=== PATIENT | male | born 1940 | race Caucasian/White ===

== ENCOUNTER → 2016-12-29 | Outpatient (CLI) | payer MEDICARE, BC ==
[~2016-12-29] MED LIST: DAPS100T PO; DICL75TA2 PO; LISI-410 PO; SIMV40TA3 PO; TAFL1DRO BOTH EYES
--- NOTE | 2016-12-30 04:22 | DIREP ---
PROCEDURE:CT MAXILLOFACIAL W/O CONTRAST COMPARISON:[facility] and Spiral CT, MR, MRI BRAIN W/WO, 10/27/2016, 11:58 AM. INDICATIONS:J01.01 ACUTE RECURRENT MAXILLARY SINUSITIS, R51 HEADACHE TECHNIQUE:Axial images were obtained through the facial bones with coronal reconstructions from source images. FINDINGS: GLOBES:Normal. EXTRAOCULAR MUSCLES:Normal. OPTIC NERVES:Normal. LACRIMAL GLANDS:Normal. MAXILLARY SINUSES:Near-complete opacification of the right maxillary sinus. Bilateral maxillary antral windows. Chronic mucoperiosteal thickening of the right maxillary sinus. Calcification within the right maxillary sinus mucosal thickening. Minimal mucosal thickening left maxillary sinus. ETHMOID SINUSES:Normal. SPHENOID SINUSES:Normal. FRONTAL SINUSES:Normal. OSTIOMEATAL COMPLEXES:Patent. NASAL SEPTUM:Deviation to the left measures 2 mm. OTHER:Paradoxical curvature of the left middle turbinate. CONCLUSION:Chronic right maxillary sinusitis. Dictated by: Jeremy Treviño M.D. on 12/30/2016 at 04:15 AM
== END | disposition home or self-care (01) ==
LOC: RAD 13:55
PROVIDERS: ATTEND Internal Medicine
DX: J32.0 Chronic maxillary sinusitis (principal)
CPT/HCPCS: 70486

== ENCOUNTER 2017-04-03 20:55 | Emergency (ER) | payer MEDICARE, BC ==
[~2017-04-03] VITALS: Ht 172.7 cm; Wt 84.4 kg
[2017-04-03] MEDS ORDERED: KLONOPIN PO STA (21:28)
[2017-04-03] MEDS ORDERED: KLONOPIN ONE (21:29)
--- NOTE | 2017-04-03 21:32 | ER.PDOC ---
General Chief Complaint: General Complaint Stated Complaint: HIGH BLOOD PRESSURE TRAVEL OUT OF US: No Time seen by MD: 21:31 Source: patient Exam Limitations: no limitations History of Present Illness Initial Comments Elevated blood pressure Timing/Duration: 4-6 hours Associated Symptoms: denies symptoms Allergies: Coded Allergies: No Known Allergies (Unverified , 08/02/15) Home Meds Reported Medications Simvastatin (SIMVASTATIN) 40 Mg Tablet, 40 TAB PO DAILY, #90 08/02/15 Dapsone (DAPSONE) 100 Mg Tablet, 100 TAB PO DAILY, #90 08/02/15 Diclofenac Sodium (DICLOFENAC SODIUM) 75 Mg Tablet.dr, 75 TAB PO DAILY, #180 08/02/15 Lisinopril (LISINOPRIL) 20 Mg Tablet, 20 TAB PO DAILY, #90 08/02/15 Tafluprost/Pf (ZIOPTAN 0.0015% EYE DROPS) 1 Each Droperette, 1 DROP BOTH EYES BID, #30 08/02/15 Past Medical History Medical History: hypertension Surgical History: appendectomy, cholecystectomy, knee Social History Smoking: non-smoker Alcohol Use: none Drug Use: none Review of Systems Constitutional: no symptoms reported Respiratory: no symptoms reported Cardiovascular: no symptoms reported Gastrointestinal: no symptoms reported Genitourinary: no symptoms reported All Other Systems: Reviewed and Negative Physical Exam General Appearance: Anxious Neck: Non-Tender, Full Range of Motion, Supple Respiratory: chest non-tender CVS: reg rate & rhythm, no murmur, no gallop, pulses nml Gastrointestinal: Normal Bowel Sounds, No Organomegaly, No Pulsatile Mass, Non Tender Back: Normal Inspection, No CVA Tenderness Extremities: Normal Range of Motion Neurologic/Psychiatric: caregiver assisted living II-XII NML as Tested Skin: Normal Color Results/Orders Results/Orders Administered Medications Medications (Trade) Dose Ordered Sig/Phillip Route PRN Reason Start Time Stop Time Status Last Admin Dose Admin Clonazepam (Klonopin) 1 mg STAT STAT PO 04/03/17 21:28 04/03/17 21:29 DC 04/03/17 21:32 Progress Progress Bp 155/76 Departure Time of Disposition: 21:56 Disposition: 01 HOME, SELF-CARE Impression: Primary Impression: Elevated blood pressure reading with diagnosis of hypertension Additional Impression: Anxiety Condition: Improved Referrals: PATIENCE HENLEY MD (PCP) PRIMARY CARE PROVIDER Additional Instructions: Continue home medications F/U with your PCP in 2-3 days Keep a blood pressure diary EDILIA LAW MD Apr 03, 2017 21:32
[2017-04-03 22:04] VITALS: BP 155/76
== END 2017-04-03 22:02 | disposition home or self-care (01) ==
LOC: ER 20:55
DX: I10 Essential (primary) hypertension (principal); R41.9 Unspecified symptoms and signs involving cognitive functions and awareness; Z79.899 Other long term (current) drug therapy; Z90.49 Acquired absence of other specified parts of digestive tract; Z98.890 Other specified postprocedural states
CPT/HCPCS: 99282

== ENCOUNTER 2017-07-29 01:06 | Observation (INO) | payer MEDICARE, BC ==
[2017-07-28 11:02] VITALS: BP 147/76
[2017-07-28 11:32] LABS: BASOPHIL % 0.4 % (0.0-0.2); EOSINOPHIL # 0.1 10^3/uL (0.0-0.2); EOSINOPHIL % 1.2 % (0.0-5.0); HEMOGLOBIN 14.6 g/dL (13.9-16.3); LYMPHOCYTES # 1.9 10^3/uL (1.0-4.8); LYMPHOCYTES % 18.1 % (24.0-44.0); MEAN CELL HGB 29.9 pg (26-34); MEAN CORP VOLUME 93.3 fL (78-100); MEAN PLATELET VOLUME 10.2 fL (7.8-11.0); MONOCYTES # 1.1 10^3/uL (0.3-0.8); MONOCYTES % 10.9 % (5.0-12.0); NEUTROPHIL # 7.2 10^3/uL (1.8-7.7); RED CELL DISTRIBUTION WIDTH 13.3 % (11.5-14.5); WHITE BLOOD CELL 10.4 10^3/uL (4.5-11.0)
[2017-07-28 11:57] LABS: CALCIUM 9.4 mg/dL (8.4-10.5); CARBON DIOXIDE 24.8 mmol/L (20.0-32)
--- NOTE | 2017-07-28 11:57 | PCM.EKG ---
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
--- NOTE | 2017-07-28 12:38 | DIREP ---
PROCEDURE:CHEST 2 VIEWS COMPARISON:[facility], CR, XRAY CHEST SINGLE VW, 09/07/2016, 02:23 PM. [facility], CR, XRAY CHEST SINGLE VW, 07/14/2016, 09:14 AM. INDICATIONS:PRE-OP HEART CATH, CAD FINDINGS: LUNGS/PLEURA:No significant pulmonary parenchymal abnormalities. No effusions. VASCULATURE:Normal. Unremarkable pulmonary vasculature. CARDIAC:Borderline cardiomegaly, unchanged MEDIASTINUM:Normal. No visible mass or adenopathy. BONES:Normal. No fracture or visible bony lesion. OTHER:Negative. CONCLUSION:Borderline cardiomegaly unchanged. No infiltrate, no effusion. Dictated by: Lilly Martinez MD on 07/28/2017 at 12:36 PM
[~2017-07-29] VITALS: Ht 172.7 cm; Wt 86.2 kg
[~2017-07-29 01:06] MED LIST changes: +CHRM1TAB PO; +CLON1TAB3 PO; +PROP80CA12 PO; +PROP80CA3 PO; +TEST5GEL TP; +TUMERIC PO; +UBID100C23 PO; +VALS1TAB22 PO
[2017-07-29] MEDS ORDERED: NS 1000ML 1,000 ML ONE (06:35)
[2017-07-29] MEDS ORDERED: CALAN ONE (06:35)
[2017-07-29] MEDS ORDERED: SUBLIMAZE ONE (06:35)
[2017-07-29] MEDS ORDERED: VERSED ONE (06:36)
[2017-07-29] MEDS ORDERED: XYLOCAINE ONE (06:36)
[2017-07-29] MEDS ORDERED: NITROGLYCERIN 25MG/D5W 250ML 250 ML IV ONE (06:36)
[2017-07-29] MEDS ORDERED: BENADRYL PO ONE (07:30)
[2017-07-29 10:10] VITALS: BP 154/73
[2017-07-29] MEDS ORDERED: HEPARIN ONE (13:32)
[2017-07-29] MEDS ORDERED: BRILINTA ONE (13:47)
[2017-07-29] MEDS ORDERED: TUMS ONE (13:47)
[2017-07-29] MEDS ORDERED: ASPIRIN ONE (13:48)
[2017-07-29] MEDS ORDERED: KLONOPIN PO PRN (15:00)
[2017-07-29] MEDS ORDERED: AMBIEN PO PRN (15:00)
[2017-07-29] MEDS ORDERED: NORCO 5MG PO PRN (15:00)
[2017-07-29] MEDS: NS 1000ML 1,000 ML IV SCH (15:36)
[2017-07-29 15:39] VITALS: BP 134/78
--- NOTE | 2017-07-29 15:40 | NUR ---
Manual Pressure Hardening of heart cath site noted. Manual pressure held for 10 minutes. Pt denies pain. +2 bilateral radial pulses noted. Post pressure site feels soft with no bleeding or bruising noted. Educated pt on reportable s/s related to heart cath site. Call light within reach. at bedside.
--- NOTE | 2017-07-29 18:50 | NUR ---
ASSUMED CARE. ASSESSMENT INITIATED.
[2017-07-29 19:20] VITALS: BP 139/72
--- NOTE | 2017-07-29 19:20 | NUR ---
VITAL SIGNS STABLE. ASSESSMENT COMPLETED AND WITHIN NORMAL LIMITS. SEE FLOW
--- NOTE | 2017-07-29 21:00 | NUR ---
DECLINES EYES DROPS. STATES,"I WILL WAIT UNTIL I GET HOME.'
[2017-07-29 23:00] VITALS: BP 150/68
--- NOTE | 2017-07-29 23:00 | NUR ---
VITAL SIGNS STABLE. TR BAND DEFLATED OF 2cc AND REMOVED PER AVNI PRICE RN, CHARGE NURSE. NO BLEEDING NOTED AT SITE. SOME BRUISING NOTED PROXIMAL TO DRESSING WITHOUT CHANGE FROM INITIAL ASSESSMENT @ 1920, 4x4 AND OPSITE DRESSING APPLIED PER CHARGE NURSE AVNI. WILL CONTINUE REEVALUATE THROUGHOUT THE NIGHT. INSTRUCTED TO REPORT TO NURSE FI ANY BLEEDING NOTED TO DRESSING. VOICED UNDERSTANDING OF SAME.
--- NOTE | 2017-07-29 23:30 | NUR ---
IV SITE IN LEFT AC NOT INFUSING. UNABLE TO FLUSH. DC'D CATH INTACT. IV STARTED X 1 ATTEMTP, 20GA INTO LEFT WRIST. NS INFUSING AT 100CC/HR WITHOUT DIFFICULTY. IV SITE REMAINING PATENT AND CLEAR..
[2017-07-30 04:00] VITALS: BP 148/74
[2017-07-30] MEDS: NS 1000ML 1,000 ML IV SCH (05:47)
--- NOTE | 2017-07-30 05:47 | NUR ---
NEW LITER NS HUNG AND INFUSING WITHOUT DIFFICULTY. DENIES PAIN. DENIES NEEDS.
[2017-07-30 05:57] VITALS: BP 148/74
--- NOTE | 2017-07-30 06:51 | NUR ---
REPORT RECEIVED FROM PRIOR SHIFT
--- NOTE | 2017-07-30 06:51 | NUR ---
NO CHANGE IN STATUS. CONDITION STABLE. ENDORSED TO SANTO JENNINGS
[2017-07-30 07:41] VITALS: BP 140/70
--- NOTE | 2017-07-30 08:32 | PCM.EKG ---
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
[2017-07-30] MEDS ORDERED: DIOVAN PO SCH (09:00)
[2017-07-30] MEDS ORDERED: HYDROCHLOROTHIAZIDE PO SCH (09:00)
[2017-07-30] MEDS ORDERED: PLAVIX PO SCH (09:00)
[2017-07-30] MEDS ORDERED: INDERAL PO SCH ×2 (09:00)
[2017-07-30] MEDS ORDERED: ASPIRIN EC PO SCH (09:00)
--- NOTE | 2017-07-30 10:26 | [facility] ---
DATE OF SERVICE: 07/29/2017 PROCEDURES PERFORMED: 1. Left heart catheterization via right radial artery. 2. Selective coronary angiography, left and right. 3. Angioplasty of proximal LAD with primary stenting using a drug-eluting stent. 4. Heparin infusion with ACT monitoring. COMPLICATIONS: None. BLOOD LOSS: Minimal, less than 15 to 20 mL INDICATIONS: 1. New onset active angina symptoms. 2. Multiple CAD risk factors. 3. Poorly controlled hypertension. 4. High suspicion for obstructive coronary artery disease with new-onset, typical angina symptoms. 5. Non-conclusive recent stress test in 2016. 6. The patient's preference to proceed with coronary angiography in light of his uncontrolled hypertension, active chest pain symptoms, and to seek diagnostic and therapeutic power of a cardiac coronary angiography. HISTORY OF PRESENT ILLNESS: The patient presented to the [facility] in a fasting condition, he signed the appropriate consent, the risks and benefits were explained, and all questions were answered. He was indeed symptomatic with angina at minimal activity, classified as stage III angina. DESCRIPTION OF PROCEDURE: The right wrist area was prepped and draped and sterilized and 1% lidocaine was used for local analgesia, followed by a 6-Yemeni sheath inserted in the right radial artery without difficulty. 5000 units of heparin was given for the radial access time for radial protection. A 6-Yemeni [place] catheter was utilized to engage the left and right coronary arteries. This was exchanged for a XBU-3 guiding catheter to facilitate a more adequate engagement and cannulation of the left main with the XBU-3 guiding catheter. Careful examination of the coronary angiography showed a significant proximal LAD lesion in a medium-sized vessel. The lesion was short, distinct, and significant, causing a ROSE 2 flow into the LAD. The LAD flow was significantly slower than the circumflex artery, which was a large, dominant vessel flow. At this point, heparin was given for anticoagulation and the decision was made to proceed with angioplasty. A Whisper wire was advanced across the LAD proper without difficulty, followed by the deployment of a 3.0 x 12 Xience Alpine drug-eluting stent, deployed at 14 and postdilated to 16 atmospheric pressures, achieving a 0% residual stenosis and a ROSE 3 flow without complications. There was a notable improvement with a ROSE 3 flow in the LAD after the angioplasty. The case was then concluded with removal of the wires and catheters and application of a TR band at the right radial artery access site. The patient received 180 mg of Brilinta loading dose and heparin was given with ACT monitoring for adequate anticoagulation during the procedure. The patient left the [facility] in a stable condition. Please note that the patient also reported chest pain during balloon inflation. Towards the end, while the Whisper wire was engaging the LAD, a BMW wire was advanced into the circumflex artery to improve guide stabilization. The wire was removed towards the end of the procedure. No intervention was done to the circumflex artery itself. HEMODYNAMICS: Opening pressure 142/65 mmHg, mean 96 mmHg. ANGIOGRAPHIC FINDINGS: 1. The right coronary artery is a medium sized vessel, co-dominant distribution, free of disease. The PDA and PLV were medium to small sized vessels, free of disease. 2. The left main was short, mildly calcified, free of disease. 3. The LAD showed a hazy looking, small, short 80% to 85% lesion. The vessel was medium in size. The diagonal branches were small, tortuous vessels without significant disease. The LAD continued with mild disease in the midsegment at around 40%. The apical segment showed diffuse luminal irregularity. The flow in the LAD showed a ROSE 2 flow, slower than the circumflex artery flow. 4. The circumflex artery was a large codominant vessel. The proximal part was free of disease. It terminated as a medium sized left PDA, co-dominant in distribution. The first obtuse marginal was a small rudimentary vessel. The second obtuse marginal showed a 70% to 80% lesion in the very distal portion, and a very tortuous vessel. The circumflex artery supplied a significant amount to the myocardium. INTERVENTION: The same XBU-3 guiding catheter that was used for diagnostic purposes was utilized to advance a Whisper wire across the LAD. The LAD received 3.0 x 12 Xience Alpine drug-eluting stent with primary stenting for the spot lesion in the proximal part, with excellent results and without complication. The patient reported chest pain upon stent balloon inflation. IMPRESSION: 1. Successful angioplasty of high-grade stenotic lesion in the proximal LAD causing decreased LAD flow in a medium sized vessel. 2. Large circumflex artery with residual disease in the first and second obtuse marginal distal portion; otherwise, the circumflex artery was free of disease, a large vessel and a co-dominant. 3. The RCA is a medium sized co-dominant vessel without significant disease. 4. The case was well tolerated without complications. RECOMMENDATIONS: 1. TR band protocol. 2. Dual antiplatelet therapy. 3. Optimize medical management for secondary prevention of coronary artery disease. 4. Monitor the patient for any postprocedural complication, mainly ischemia or bleeding. 5. Education on therapeutic lifestyle modifications. Cruz Castro MD DR: EUGENE/sylvia JOB# [id number]
--- NOTE | 2017-07-30 10:35 | NUR ---
DISCHARGE PLAN CM VISITED WITH PATIENT AND CONCERNING PATIENTS DISCHARGE PLAN AND NEED. PATIENT STATED HE LIVES @ HOME WITH HIS AND HE IS VERY INDEPENDENT ON ADLS. HE DOES NOT USE ANY TYPE OF DME FOR ASSISTANCE AND DENIES NEEDING FURTHER ASSISTANCE @ THIS TIME. CONTACT INFORMATION PROVIDED. CURRENT GOAL FOR PATIENT IS TO RETURN BACK HOME WITH TO ROUTINE SELF CARE UPON DISCHARGE. NO FURTHER CM OR DISCHARGE NEEDS KNOWN @ THIS TIME.
[2017-07-30] MEDS ORDERED: CLOP75TA52 PO (10:41)
--- NOTE | 2017-07-30 10:45 | PRM.DC ---
Discharge Summary Date of Discharge: Jul 30, 2017 Time of Request to Discharge: 10:42 Reason for Visit: Cardiac cath with PCI Patient History: Alzheimer's disease 32 MOTHER, , Age:94 Asthma 19 CHILD Eye problems G8 SISTER, Age:87 G8 SISTER, Age:92 FH: O2 dependent lung disease G8 SISTER, Age:92 FH: lung cancer 33 FATHER, , Age:69 FH: thyroid disease 19 CHILD 19 CHILD No Family History of: Cerebrovascular disorder Chronic obstructive pulmonary disease Congestive heart failure Diabetes insipidus Diabetes mellitus Hypertension Parkinson's disease History Present Illness: General: Alert, Oriented X3, Cooperative, No acute distress HEENT: Atraumatic, Mucous membr. moist/pink Lungs: Clear to auscultation Heart: Regular rate Extremities: No cyanosis, Normal pulses Neuro: Normal speech, Normal tone Psych/Mental Status: Mental status NL, Mood NL Scheduled Chrm/Cider/ Bt-Org Peel/Gr T (Apple Cider Vinegar Plus Tb), 2 EACH PO DAILY, ( Reported) Clopidogrel Bisulfate (Plavix), 75 MG PO DAILY Dapsone (Dapsone), 100 TAB PO DAILY, (Reported) Propranolol Hcl (Inderal La), 1 CAP PO DAILY, (Reported) Propranolol Hcl (Propranolol Hcl), 1 CAP PO DAILY, (Reported) Tafluprost/Pf (Zioptan 0.0015% Eye Drops), 1 DROP BOTH EYES BID, (Reported) Testosterone (Androgel), 1 PKT TP Q48H, (Reported) Ubidecarenone (Coq-10), 50 MG PO DAILY, (Reported) Valsartan/Hydrochlorothiazide (Diovan Hct 320-25 Mg Tablet), 1 TAB PO DAILY, ( Reported) [Tumeric], 1 TAB PO DAILY, (Reported) Scheduled PRN Clonazepam (Clonazepam), 1 TAB PO BID PRN for ANXIETY, (Reported) Discontinued Medications Diclofenac Sodium (Diclofenac Sodium), 75 TAB PO DAILY, (Reported) Discontinued Reason: No Longer Taking Lisinopril (Lisinopril), 20 TAB PO DAILY, (Reported) Discontinued Reason: No Longer Taking Simvastatin (Simvastatin), 40 TAB PO DAILY, (Reported) Discontinued Reason: No Longer Taking Sepsis Evaluation @ Discharge Course Blood Pressure Systolic: 140 Blood Pressure Diastolic: 70 Blood Pressure Mean: 93 Plan Problems: (1) CAD (coronary artery disease) Status: Chronic ICD Code: I25.10 - Atherosclerotic heart disease of shawnee coronary artery without angina pectoris SNOMED: [id number] Discharge Date: Jul 30, 2017 Discharge Disposition: Stable Plan PLAN: Successful angioplasty of high-grade stenotic lesion in the proximal LAD causing decreased LAD flow in a medium sized vessel. Dual antiplatelet therapy with Plavix and aspirin. Optimize medical management for secondary prevention of coronary artery disease. Education on therapeutic lifestyle modifications and travel precautions. Problem Qualifiers (1) CAD (coronary artery disease): Coronary Disease-Associated Artery/Lesion type: [place] artery [place] vs. transplanted heart: shawnee heart CHRIS BARKLEY NP Jul 30, 2017 10:45
== END 2017-07-30 11:02 | disposition home or self-care (01) ==
LOC: SDC 01:06 → MS 15:23
PROVIDERS: ADMIT Internal Medicine; ATTEND Internal Medicine
DX: I25.110 Atherosclerotic heart disease of native coronary artery with unstable angina pectoris (principal); E78.00 Pure hypercholesterolemia, unspecified; I10 Essential (primary) hypertension; I73.9 Peripheral vascular disease, unspecified; G47.8 Other sleep disorders; E78.1 Pure hyperglyceridemia; L40.4 Guttate psoriasis; G47.37 Central sleep apnea in conditions classified elsewhere; G43.119 Migraine with aura, intractable, without status migrainosus; Z68.27 Body mass index [BMI] 27.0-27.9, adult; Z98.890 Other specified postprocedural states
CPT/HCPCS: 36415; 71020; 80048; 85025; 85610; 93005 ×2; 93454; 99152; 99153; C1769 ×3; C1887 ×3; C1894; C9600; G0378 ×20; J1644 ×2; J2250; J3010; J3490 ×2; J7030 ×2; Q0163; Q9967; C1874

== ENCOUNTER → 2018-02-08 | Outpatient (CLI) | payer MEDICARE, BC ==
[~2018-02-08] VITALS: Ht 172.7 cm; Wt 86.6 kg
[~2018-02-08] MED LIST changes: +CLOP75TA52 PO; +GEMF600T3 PO; +LEXISCAN IV ONE
--- NOTE | 2018-02-10 09:46 | STRESS ---
DATE OF SERVICE: 02/08/2018 [facility] PHARMACOLOGIC STRESS TEST INDICATION: The patient with a history of coronary artery disease. He had PCI in the anterior descending, but review of the electrocardiogram showed some intermediate lesions in the first and second obtuse marginal branches of the circumflex. He was now having new onset exertional chest pain and was referred for pharmacologic myocardial perfusion scan. FINDINGS: The left ventricular size and function are normal. Ejection fraction is 81%. There is a reversible perfusion defect in the lateral and inferolateral left ventricle consistent with ischemia. The abnormal area matches the coronary angiogram. CONCLUSION: Abnormal pharmacologic stress test showing lateral and inferolateral ischemia. MARYELLEN RABAGO MD DR: ROSANGELA/sylvia JOB# [id number]
== END | disposition home or self-care (01) ==
LOC: RAD 10:50
DX: I25.10 Atherosclerotic heart disease of native coronary artery without angina pectoris (principal)
CPT/HCPCS: 78452; 93017; A9500; J2785

== ENCOUNTER 2018-02-17 01:11 | Observation (INO) | payer MEDICARE, BC ==
[2018-02-16 09:46] VITALS: BP 125/66
[2018-02-16 10:08] LABS: BASOPHIL % 0.6 % (0.0-0.2); EOSINOPHIL # 0.3 10^3/uL (0.0-0.2); EOSINOPHIL % 4.3 % (0.0-5.0); HEMOGLOBIN 14.3 g/dL (13.9-16.3); LYMPHOCYTES # 1.8 10^3/uL (1.0-4.8); LYMPHOCYTES % 27.1 % (24.0-44.0); MEAN CELL HGB CONCENTRATION 33.4 g/dL (33-37); MEAN CORP VOLUME 92.6 fL (78-100); MEAN PLATELET VOLUME 9.9 fL (7.8-11.0); MONOCYTES # 0.8 10^3/uL (0.3-0.8); MONOCYTES % 12.4 % (5.0-12.0); NEUTROPHIL # 3.7 10^3/uL (1.8-7.7); NEUTROPHILS % 55.5 % (41.0-85.0); RED CELL DISTRIBUTION WIDTH 13.4 % (11.5-14.5); WHITE BLOOD CELL 6.7 10^3/uL (4.5-11.0)
[2018-02-16 10:20] LABS: CALCIUM 9.7 mg/dL (8.4-10.5); CARBON DIOXIDE 25.5 mmol/L (20.0-32)
[~2018-02-17] VITALS: Ht 172.7 cm; Wt 87.5 kg
[~2018-02-17 01:11] MED LIST changes: -LEXISCAN IV ONE
[2018-02-17] MEDS ORDERED: HEPARIN ONE (06:14)
[2018-02-17] MEDS ORDERED: SUBLIMAZE ONE (06:15)
[2018-02-17] MEDS ORDERED: VERSED ONE (06:15)
[2018-02-17] MEDS ORDERED: XYLOCAINE ONE (06:15)
[2018-02-17 08:11] VITALS: BP 144/72
[2018-02-17] MEDS: NS 1000ML 1,000 ML IV SCH (08:22)
[2018-02-17] MEDS ORDERED: ANGIOMAX IV ONE ×2 (09:04→09:43)
[2018-02-17] MEDS ORDERED: NS 50ML 50 ML IV ONE (09:43)
[2018-02-17] MEDS ORDERED: ASPIRIN ONE (09:45)
[2018-02-17] MEDS ORDERED: PLAVIX ONE (09:45)
--- NOTE | 2018-02-17 11:20 | NUR ---
ARRIVAL PT ARRIVED FROM AUTOMATION SOFTWARE ENGINEER AT THIS TIME. REPORT RECEIVED FROM Martin FLORES RN AND ASSUMED CARE OF PT
--- NOTE | 2018-02-17 12:15 | NUR ---
ANGIOMAX ANGIOMAX COMPLETE AT THIS TIME
--- NOTE | 2018-02-17 13:18 | [facility] ---
DATE OF SERVICE: 02/17/2018 PROCEDURES: 1. Left heart catheterization. 2. Percutaneous transluminal coronary angioplasty and drug-eluting stent placement in the first obtuse marginal branch. CLINICAL INDICATION: The patient is a 77-year-old male who had 3 months ago had undergone angioplasty in the main body of the circumflex. He was having a heavily congested head sensation which he said after the PCI was immediately relieved. He came in the clinic saying that the symptoms were recurring. I reviewed the angiogram films and realized that there was on a higher obtuse marginal branch that had a 90% stenosis distally before it trifurcated and presumed that that might be the cause of his new onset symptoms. I recommended that we repeat the catheterization and we could do PCI on that lesion. DESCRIPTION OF PROCEDURE: After informed consent was obtained, the patient was brought to the cardiac catheterization lab in a fasting state, was prepped and draped in usual sterile fashion. A 6-Fijian sheath was placed in the right radial artery using Seldinger technique. A 6-Fijian XB 4.0 guide catheter was then engaged in the left coronary artery. The first obtuse marginal branch had a rather acute takeoff from the main branch of the circumflex and it took multiple different wires to attempt to engage it. Finally, a mailman catheter was successful. The lesion which was distal at the trifurcation point was predilated with a 2.5 x 20 mm compliant balloon. Following this, a 2.5 x 15 mm Xience drug-eluting stent was deployed across the lesion. It was deployed to a peak pressure of 16 atmospheres. After this, a more proximal stent was placed to extend the reach. A 2.5 x 28 mm Xience stent was overlapped into the existing stent and was deployed to 16 atmospheres. There was still a little spasm at the proximal end of that stent, so a third stent, 2.5 x 15 mm Xience was used to overlap to complete the procedure. After an deployment, a 2.5 x 15 mm noncompliant balloon was used to post-dilate the stents. It was along the course of the stented area, it was inflated 3 times to a peak pressure of 20 atmospheres. Post-stent angiography showed a widely patent first obtuse marginal branch with 0% residual and markedly improved distal flow. Over a wire, the guide catheter was removed. The sheath was withdrawn in the cardiac laborer wharf and a TR band was placed for hemostasis. At the initiation of the procedure, the patient who was already on Plavix was preloaded with 300 mg of Plavix and anticoagulation used was Angiomax. He tolerated the procedure well and he was transferred to room 312 in the Med/Surg floor and will be discharged tomorrow. CONCLUSION: 1. Successful PCI and drug-eluting stent placement in the distal half of the first obtuse marginal branch, reducing a 90% stenosis to a 0% residual with placement of 3 overlapping drug-eluting stents. 2. No complications. MARYELLEN RABAGO MD DR: ROSANGELA/sylvia JOB# [id number]
[2018-02-17] MEDS ORDERED: ENTRESTO 24 MG-26 MG TABLET PO ONE (16:20)
[2018-02-17] MEDS ORDERED: PROTONIX PO ONE (16:21)
[2018-02-17] MEDS ORDERED: KLOR-CON 10 PO ONE ×2 (16:21→16:22)
--- NOTE | 2018-02-17 18:30 | NUR ---
REPORT REPORT RECEIVED FROM ALLI ARNOLD ASSUMED CARE OF PT
[2018-02-17 19:57] VITALS: BP 130/68
[2018-02-18 00:30] VITALS: BP 138/69
--- NOTE | 2018-02-18 00:36 | NUR ---
HOME MEDS PT REQUESTING CLANAZEPAM 1MG PO HOME MED, ATTEMPTED TO CONTACT PHYSICIAN, NO ANSWER AT THIS TIME. LEFT MESSAGE REQUESTING CALL BACK.
[2018-02-18] MEDS: NS 1000ML 1,000 ML IV SCH (01:37)
[2018-02-18 04:25] VITALS: BP 112/58
--- NOTE | 2018-02-18 06:30 | NUR ---
Report Received report and assumed care of pt. Pt laying in bed with eyes closed. Equal rise and fall of the chest noted. Call light within reach.
--- NOTE | 2018-02-18 07:55 | NUR ---
DISCHARGE PLAN CM VISITED WITH PT AND CONCERNING PTS DISCHARGE PLAN AND NEED. PT STATED HE LIVES @ HOME WITH HIS AND HE IS VERY INDEPENDENT ON ADLS. HE DOES NOT USE ANY TYPE OF DME FOR ASSISTANCE AND DENIES NEEDING FURTHER ASSISTANCE @ THIS TIME. CONTACT INFORMATION PROVIDED. CURRENT GOAL FOR PT IS TO RETURN BACK HOME WITH TO ROUTINE SELF CARE UPON DISCHARGE. NO FURTHER CM OR DISCHARGE NEEDS KNOWN @ THIS TIME.
[2018-02-18] MEDS ORDERED: ASPI-655 PO (08:26)
--- NOTE | 2018-02-18 08:53 | NUR ---
Discharge Discharge instructions given to pt. Educated pt on continuing medications. pt able to verbalize understanding. Educated pt on importance of follow up with Dr. Ellis. Pt able to verbalize understanding. Educated pt on care of heart cath site. pt able to verbalize understanding. Educated pt on reportable s/s. Pt able to verbalize understanding. Answered all pt and pt questions. Both deny further questions or concerns. Removed IV. Bleeding noted. Pressure held for 5 minutes. Site Covered with gauze and Coban. Pt transferred off unit via wheelchair to personal vehicle. No s/s of distress noted.
--- NOTE | 2018-02-18 15:16 | DSH ---
DATE OF DISCHARGE: 02/18/2018 HOSPITAL COURSE: The patient is a 77-year-old male who came in yesterday for a planned outpatient PCI. He had a previous PCI in the distal circumflex. There was a proximal OM branch that still had a high grade lesion and he was symptomatic. He had 3 stents placed in the first OM branch, a distal 90% lesion. Prior to the procedure, he was preloaded with 300 mg of Plavix, which he had been on from his previous intervention. He did well overnight. He has no cardiac symptoms or chest pain. He had radial access catheterization and he is cleared to discharge today. His physical exam is unchanged. He still has a gauze pad on his right wrist and I have told him he can take that off as soon as he is home. No change in his medications since his preop visit. He has been on Plavix and will remain on that for a year at least. PLAN: 1. Discharge home to his own self care: 2 . Follow up with me in 2 weeks. MARYELLEN RABAGO MD DR: ROSANGELA/sylvia JOB# [id number]
== END 2018-02-18 08:59 | disposition home or self-care (01) ==
LOC: SDC 01:11 → MS 11:35
DX: I25.10 Atherosclerotic heart disease of native coronary artery without angina pectoris (principal)
CPT/HCPCS: 36415; 80048; 85025; 93454; 99152; 99153 ×5; C1769 ×2; C1887 ×3; C9600; G0378 ×21; J0583 ×2; J1644 ×3; J2250; J3010; J3480 ×2; J7030 ×3; Q9967 ×2; C1894; C1725

== ENCOUNTER 2018-02-24 13:17 | Observation (INO) | payer MEDICARE, BC ==
[~2018-02-24] VITALS: Ht 172.7 cm; Wt 86.2 kg
[2018-02-24] VITALS (7 sets, daily range): BP systolic 109–155; BP diastolic 47–99
[~2018-02-24 13:17] MED LIST changes: +ASPI-655 PO
[2018-02-24 13:31] LABS: BASOPHIL % 0.3 % (0.0-0.2); EOSINOPHIL # 0.2 10^3/uL (0.0-0.2); EOSINOPHIL % 1.3 % (0.0-5.0); HEMOGLOBIN 14.4 g/dL (13.9-16.3); LYMPHOCYTES # 1.2 10^3/uL (1.0-4.8); LYMPHOCYTES % 9.4 % (24.0-44.0); MEAN CELL HGB 30.5 pg (26-34); MEAN CELL HGB CONCENTRATION 33.3 g/dL (33-37); MEAN CORP VOLUME 91.7 fL (78-100); MEAN PLATELET VOLUME 9.9 fL (7.8-11.0); MONOCYTES # 1.1 10^3/uL (0.3-0.8); MONOCYTES % 8.9 % (5.0-12.0); NEUTROPHILS % 79.7 % (41.0-85.0); RED CELL DISTRIBUTION WIDTH 13.9 % (11.5-14.5); WHITE BLOOD CELL 12.5 10^3/uL (4.5-11.0)
--- NOTE | 2018-02-24 13:31 | ER.PDOC ---
General Chief Complaint: Chest Pain-Cardiac Nature Stated Complaint: CP Time seen by MD: 13:33 Source: patient History of Present Illness Timing/Duration: 4-6 hours Severity/Quality: mild Radiation: back Activities at Onset: activity/exertion Prior CP/Workup: Cardiac Cath Allergies: Coded Allergies: No Known Allergies (Unverified , 07/28/17) Home Meds Active Scripts Clopidogrel Bisulfate (PLAVIX) 75 Mg Tablet, 75 MG PO DAILY, #30 4 Refills Prov:CHRIS BARKLEY APRN,CARVER AND CHECKERER SPECIALS 07/30/17 Reported Medications Aspirin (ASPIRIN EC) 81 Mg Tablet.dr, 1 TAB PO DAILY, #30 TAB 3 Refills 02/18/18 Gemfibrozil (GEMFIBROZIL) 600 Mg Tablet, 600 MG PO DAILY24 for CHOLESTEROL, TABLET 02/16/18 Propranolol Hcl (PROPRANOLOL HCL) 80 Mg Cap.sa.24h, 1 CAP PO DAILY, #90 CAP 1 Refill 07/28/17 Magy/Rosanna/ Bt-Org Peel/Gr T (APPLE CIDER VINEGAR PLUS TB) 1 Each Tablet, 2 EACH PO DAILY, TABLET 07/28/17 Ubidecarenone (COQ-10) 100 Mg Capsule, 50 MG PO DAILY, CAPSULE 07/28/17 Clonazepam (CLONAZEPAM) 1 Mg Tablet, 1 TAB PO BID PRN for ANXIETY, #60 TAB 2 Refills 07/28/17 [Tumeric] No Conflict Check, 1 TAB PO DAILY 07/28/17 Valsartan/Hydrochlorothiazide (DIOVAN HCT 320-25 MG TABLET) 1 Each Tablet, 1 TAB PO DAILY, #30 TAB 5 Refills 07/28/17 Propranolol Hcl (INDERAL LA) 80 Mg Cap.sa.24h, 1 CAP PO DAILY, #90 CAP 1 Refill 07/28/17 Tafluprost/Pf (ZIOPTAN 0.0015% EYE DROPS) 1 Each Droperette, 1 DROP BOTH EYES BID, #30 08/02/15 Discontinued Reported Medications Dapsone (DAPSONE) 100 Mg Tablet, 100 TAB PO DAILY, #90 08/02/15 Past Medical History Medical History: cardiac problems, hypertension, other Surgical History: appendectomy, cholecystectomy, knee, other Social History Smoking: non-smoker Alcohol Use: none Drug Use: none Reviewed Nursing Reviewed: Vital Signs, Abn. Noted All Other Systems: Reviewed and Negative Physical Exam General Appearance: No Apparent Distress, WD/WN HEENT: PERRL/EOMI, Normal ENT Inspection, TMs Normal, Pharynx Normal Neck: Non-Tender, Full Range of Motion, Supple, Normal Inspection Respiratory: chest non-tender, lungs clear, normal breath sounds, no respiratory distress, no accessory muscle use Cardiovascular: Normal Peripheral Pulses, Regular Rate, Rhythm, No Edema, No Gallop, No JVD, No Murmur Gastrointestinal: Normal Bowel Sounds, No Organomegaly, No Pulsatile Mass, Non Tender, Soft Extremities: Normal Range of Motion, Non-Tender, Normal Inspection, No Pedal Edema, No Calf Tenderness, Normal Capillary Refill 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
--- NOTE | 2018-02-24 13:50 | PCM.EKG ---
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
--- NOTE | 2018-02-24 13:50 | DIREP ---
PROCEDURE:CHEST 1 VIEW COMPARISON:[facility], CR, XRAY CHEST 2 VWS, 07/28/2017, 11:22 AM. INDICATIONS:CP FINDINGS: LUNGS/PLEURA:No significant pulmonary parenchymal abnormalities. No effusions. VASCULATURE:Normal. Unremarkable pulmonary vasculature. CARDIAC:Normal. No cardiac silhouette abnormality or cardiomegaly. MEDIASTINUM:Normal. No visible mass or adenopathy. BONES:Normal. No fracture or visible bony lesion. OTHER:Negative. CONCLUSION:No acute disease. No significant change has occurred. Dictated by: James Zaragoza MD on 02/24/2018 at 01:47 PM
[2018-02-24 14:05] LABS: ALANINE AMINOTRANSFERASE(ML) 25 U/L (12-78); ALKALINE PHOSPHATASE 72 U/L (50-136); ASPARTATE AMINO TRANSFERASE 24 U/L (0-35); CALCIUM 9.2 mg/dL (8.4-10.5); CARBON DIOXIDE 28.8 mmol/L (20.0-32); GLUCOSE 119 mg/dL (70-110)
[2018-02-24 14:37] LABS: APPEARANCE,URINE CLEAR (CLEAR); BILIRUBIN,URINE NEGATIVE (NEGATIVE); UA COLOR YELLOW (YELLOW); UROBILINOGEN,URINE NORMAL (NEGATIVE)
--- NOTE | 2018-02-24 15:00 | NUR ---
FEBRILE: EDP IN ROOM WITH PATIENT AND NOTED HIM TO BE SHIVERING, REQUESTED NURSE TO TAKE TEMP. TEMP WAS @ 102. NEW ORDERS GIVEN.
[2018-02-24] MEDS ORDERED: TYLENOL PO ONE (15:03)
[2018-02-24] MEDS ORDERED: TYLENOL PO STA (15:06)
[2018-02-24] MEDS ORDERED: ROCEPHIN ONE (15:20)
[2018-02-24] MEDS ORDERED: NS 100ML 100 ML IV ONE (15:20)
[2018-02-24] MEDS ORDERED: ZOFRAN ONE (15:22)
[2018-02-24] MEDS ORDERED: ROCEPHIN 1,000 MG in NS 100ML 100 ML IV STA (15:29)
[2018-02-24] MEDS ORDERED: ZOFRAN IV STA (15:30)
[2018-02-24] MEDS ORDERED: DUONEB 0.5 MG-3 MG/3 ML SOLN IH STA (15:39)
[2018-02-24] MEDS ORDERED: DECADRON IH STA (15:39)
--- NOTE | 2018-02-24 15:44 | NUR ---
DR. CARROLL: EDP CALLED DR. CARROLL WITH NO ANSWER, LEFT MESSAGE TO RETURN CALL CONCERNING ADMISSION OF THIS PATIENT.
--- NOTE | 2018-02-24 15:46 | NUR ---
RT: RT HERE TO COMPLETE NEB TREATMENT ORDERED.
--- NOTE | 2018-02-24 15:58 | NUR ---
DR GLEN GARCIA ON PHONE WITH DR CARROLL
[2018-02-24] MEDS ORDERED: AMBIEN PO PRN (16:30)
--- NOTE | 2018-02-24 16:34 | NUR ---
RECONCILE OF HOME MEDS: RECONCILIATION OF HOMES MEDS COMPLETED. PATIENT STATES THAT THE ONLY MED NOT ON HIS LIST IS DAPSONE (UNSURE OF MG) EVERY [address] RABAGO SAID TO DISCONTINUE THE MED, BUT PATIENT CONTNUES UNTIL HE CAN SPEAK WITH HIM NEXT WEEK AND TELL HIM WHY HE IS ON THIS MED.
[2018-02-24] MEDS ORDERED: LEVAQUIN 100 ML IV ONE (17:00)
[2018-02-24] MEDS ORDERED: KLONOPIN PO PRN (19:00)
[2018-02-24] MEDS ORDERED: LOPID PO SCH (19:00)
[2018-02-24] MEDS: DUONEB 0.5 MG-3 MG/3 ML SOLN IH SCH (21:28)
[2018-02-25 00:05] VITALS: BP 109/62
[2018-02-25] MEDS ORDERED: ZOFRAN IV PRN (01:00)
[2018-02-25] MEDS ORDERED: TYLENOL PO PRN (01:00)
[2018-02-25] MEDS: DUONEB 0.5 MG-3 MG/3 ML SOLN IH SCH (03:00)
[2018-02-25 04:55] VITALS: BP 105/52
--- NOTE | 2018-02-25 06:45 | NUR ---
REPORT REPORT RECEIVED FROM LAUNDRY HELPER.
[2018-02-25] MEDS ORDERED: AZIT250T PO (07:52)
--- NOTE | 2018-02-25 07:58 | PRM.DC ---
Discharge Summary Date of Discharge: February 25, 2018 Reason for Visit: Chest discomfort Patient History: Alzheimer's disease 32 MOTHER, , Age:94 Asthma 19 CHILD Eye problems G8 SISTER, Age:87 G8 SISTER, Age:92 FH: O2 dependent lung disease G8 SISTER, Age:92 FH: lung cancer 33 FATHER, , Age:69 FH: thyroid disease 19 CHILD 19 CHILD No Family History of: Cerebrovascular disorder Chronic obstructive pulmonary disease Congestive heart failure Diabetes insipidus Diabetes mellitus Hypertension Parkinson's disease History Present Illness: (1) Bronchitis Status: Acute ICD Code: J40 - Bronchitis, not specified as acute or chronic SNOMED: 71723762 Assessment & Plan: Take Z-pack as prescribed (2) CAD (coronary artery disease) Status: Chronic ICD Code: I25.10 - Atherosclerotic heart disease of [place] coronary artery without angina pectoris SNOMED: 42255906 General: Alert, Oriented X3, Cooperative, No acute distress HEENT: PERRLA, EOMI Neck: Supple, No JVD Lungs: Clear to auscultation, Normal air movement Heart: Regular rate, Normal S1, Normal S2 Abdomen: Normal bowel sounds, Soft, No tenderness Extremities: No clubbing, No cyanosis, No edema Skin: No significant lesion Neuro: Normal speech, Strength at 5/5 X4 ext, Cranial nerves 3-12 NL Psych/Mental Status: Mood NL Results(Labs/Rad) Laboratory Tests Test 02/24/18 13:27 02/24/18 14:25 02/25/18 00:42 White Blood Count 12.5 10^3/uL Red Blood Count 4.72 10^6/uL Hemoglobin 14.4 g/dL Hematocrit 43.3 % Mean Corpuscular Volume 91.7 fL Mean Corpuscular Hemoglobin 30.5 pg Mean Corpuscular Hemoglobin Concent 33.3 g/dL Red Cell Distribution Width 13.9 % Platelet Count 238 10^3/uL Mean Platelet Volume 9.9 fL Neutrophils (%) (Auto) 79.7 % Lymphocytes (%) (Auto) 9.4 % Monocytes (%) (Auto) 8.9 % Neutrophils # (Auto) 10.0 10^3/uL Lymphocytes # (Auto) 1.2 10^3/uL Monocytes # (Auto) 1.1 10^3/uL Absolute Immature Granulocyte (auto 0.05 10^3 u/L Eosinophils % 1.3 % Basophils % 0.3 % Basophils # 0.0 10^3/uL Eosinophil Count 0.2 10^3/uL Prothrombin Time 9.5 SEC Prothrombin Time INR (Non-Therap) 1.0 Activated Partial Thromboplast Time 25.9 SEC D-Dimer 0.86 mg/L Sodium Level 141 mmol/L Potassium Level 4.0 mmol/L Chloride Level 103.0 mmol/L Carbon Dioxide Level 28.8 mmol/L Anion Gap 13.2 Blood Urea Nitrogen 25 mg/dL Creatinine 1.42 mg/dL Estimated GFR () 58.5 BUN/Creatinine Ratio 17.0 Glucose Level 119 mg/dL Calcium Level 9.2 mg/dL Total Bilirubin 0.6 mg/dL Aspartate Amino Transf (AST/SGOT) 24 U/L Alanine Aminotransferase (ALT/SGPT) 25 U/L Alkaline Phosphatase 72 U/L Total Creatine Kinase 110 U/L 69 U/L Creatine Kinase MB 1.8 ng/mL 1.4 ng/mL Troponin I < 0.02 ng/mL < 0.02 ng/mL Pro-B-Type Natriuretic Peptide 139 pg/mL Total Protein 7.2 g/dL Albumin 4.2 g/dL Globulin 3.0 Percent Immature Gran (Cell Imm) 0.40 % Helicobacter pylori Screen NEGATIVE Urine Collection Type VOID Urine Color YELLOW Urine Appearance CLEAR Urine Bilirubin NEGATIVE MG/DL Urine Ketones NEGATIVE Urine Specific [place] 1.010 Urine pH 6.5 Urine Protein NEGATIVE Urine Urobilinogen NORMAL Urine Nitrate NEGATIVE Urine Leukocyte Esterase NEGATIVE Urine Blood NEGATIVE Urine Glucose NORMAL Scheduled Azithromycin (Zithromax), 250 MG PO DAILY24 Chrm/Rosanna/ Bt-Org Peel/Gr T (Apple Cider Vinegar Plus Tb), 2 EACH PO DAILY, ( Reported) Clopidogrel Bisulfate (Plavix), 75 MG PO DAILY Gemfibrozil (Gemfibrozil), 600 MG PO DAILY24, (Reported) Propranolol Hcl (Inderal La), 1 CAP PO DAILY, (Reported) Tafluprost/Pf (Zioptan 0.0015% Eye Drops), 1 DROP BOTH EYES BID, (Reported) Ubidecarenone (Coq-10), 50 MG PO DAILY, (Reported) Valsartan/Hydrochlorothiazide (Diovan Hct 320-25 Mg Tablet), 1 TAB PO DAILY, ( Reported) [Tumeric], 1 TAB PO DAILY, (Reported) Scheduled PRN Clonazepam (Clonazepam), 1 TAB PO BID PRN for ANXIETY, (Reported) Discontinued Medications Aspirin (Aspirin Ec), 1 TAB PO DAILY, (Reported) Discontinued Reason: Discontinue Dapsone (Dapsone), 100 TAB PO DAILY, (Reported) Discontinued Reason: Discontinue Propranolol Hcl (Propranolol Hcl), 1 CAP PO DAILY, (Reported) Discontinued Reason: Cancel Sepsis Evaluation @ Discharge 02/25/18 04:55 Course Sepsis Screening Results: Posi: NEGATIVE Sepsis Qualifier/Stage: NO DEFINITE RISK Vitals & review Data Vital Sign - Last 24 Hours 02/24/18 02/24/18 02/24/18 02/24/18 13:21 13:21 13:26 14:35 Temp 98.7 98.7 98.7 98.8 Pulse 77 81 81 79 Resp 20 20 20 18 B/P (MAP) 150/99 (116) 151/81 (104) Pulse Ox 95 95 O2 Delivery Room Air Room Air Room Air 02/24/18 02/24/18 02/24/18 02/24/18 15:00 15:57 16:04 16:04 Temp 102.0 Pulse 80 77 79 Resp 20 20 18 18 B/P (MAP) 155/70 (98) Pulse Ox 94 94 O2 Delivery Room Air 02/24/18 02/24/18 02/24/18 02/24/18 16:14 16:35 17:14 17:29 Temp 102.0 101.5 Pulse 80 81 76 Resp 18 16 B/P (MAP) 137/61 (86) 139/63 (88) 122/56 (78) Pulse Ox 94 91 O2 Delivery Room Air Room Air Room Air 02/24/18 02/24/18 02/24/18 02/24/18 20:15 20:35 21:30 21:46 Temp 98.9 Pulse 67 64 68 Resp 18 16 16 B/P (MAP) 109/47 (67) Pulse Ox 93 93 95 O2 Delivery Room Air Room Air 02/25/18 02/25/18 02/25/18 00:05 03:25 04:55 Temp 98.7 98.8 Pulse 64 64 61 Resp 18 18 18 B/P (MAP) 109/62 (78) 105/52 (69) Pulse Ox 95 95 94 O2 Delivery Nasal Canula Nasal [place] O2 Flow Rate 2.00 2.00 Intake and Output 02/24/18 02/24/18 02/25/18 15:00 23:00 07:00 Intake Total 300 ml 400 ml Output Total 950 ml Balance 300 ml -550 ml Laboratory Tests Test 02/24/18 13:27 02/24/18 14:25 02/25/18 00:42 White Blood Count 12.5 10^3/uL Red Blood Count 4.72 10^6/uL Hemoglobin 14.4 g/dL Hematocrit 43.3 % Mean Corpuscular Volume 91.7 fL Mean Corpuscular Hemoglobin 30.5 pg Mean Corpuscular Hemoglobin Concent 33.3 g/dL Red Cell Distribution Width 13.9 % Platelet Count 238 10^3/uL Mean Platelet Volume 9.9 fL Neutrophils (%) (Auto) 79.7 % Lymphocytes (%) (Auto) 9.4 % Monocytes (%) (Auto) 8.9 % Neutrophils # (Auto) 10.0 10^3/uL Lymphocytes # (Auto) 1.2 10^3/uL Monocytes # (Auto) 1.1 10^3/uL Absolute Immature Granulocyte (auto 0.05 10^3 u/L Eosinophils % 1.3 % Basophils % 0.3 % Basophils # 0.0 10^3/uL Eosinophil Count 0.2 10^3/uL Prothrombin Time 9.5 SEC Prothrombin Time INR (Non-Therap) 1.0 Activated Partial Thromboplast Time 25.9 SEC D-Dimer 0.86 mg/L Sodium Level 141 mmol/L Potassium Level 4.0 mmol/L Chloride Level 103.0 mmol/L Carbon Dioxide Level 28.8 mmol/L Anion Gap 13.2 Blood Urea Nitrogen 25 mg/dL Creatinine 1.42 mg/dL Estimated GFR () 58.5 BUN/Creatinine Ratio 17.0 Glucose Level 119 mg/dL Calcium Level 9.2 mg/dL Total Bilirubin 0.6 mg/dL Aspartate Amino Transf (AST/SGOT) 24 U/L Alanine Aminotransferase (ALT/SGPT) 25 U/L Alkaline Phosphatase 72 U/L Total Creatine Kinase 110 U/L 69 U/L Creatine Kinase MB 1.8 ng/mL 1.4 ng/mL Troponin I < 0.02 ng/mL < 0.02 ng/mL Pro-B-Type Natriuretic Peptide 139 pg/mL Total Protein 7.2 g/dL Albumin 4.2 g/dL Globulin 3.0 Percent Immature Gran (Cell Imm) 0.40 % Helicobacter pylori Screen NEGATIVE Urine Collection Type VOID Urine Color YELLOW Urine Appearance CLEAR Urine Bilirubin NEGATIVE MG/DL Urine Ketones NEGATIVE Urine Specific [place] 1.010 Urine pH 6.5 Urine Protein NEGATIVE Urine Urobilinogen NORMAL Urine Nitrate NEGATIVE Urine Leukocyte Esterase NEGATIVE Urine Blood NEGATIVE Urine Glucose NORMAL Current Medications Medications (Trade) Dose Ordered Sig/Phillip PRN Reason Start Time Stop Time Status Last Admin Acetaminophen (Tylenol) 1,000 mg Q6H PRN PAIN MILD 02/25/18 01:00 03/27/18 00:59 UNV Albuterol/ Ipratropium (Duoneb 0.5 Mg-3 Mg/3 ml Soln) 3 ml RTQ6 02/24/18 21:00 03/26/18 20:59 02/24/18 21:28 Clonazepam (Klonopin) 1 mg BID PRN ANXIETY 02/24/18 19:00 03/26/18 18:59 Clopidogrel Bisulfate (Plavix) 75 mg DAILY 02/25/18 09:00 03/27/18 08:59 Gemfibrozil (Lopid) 600 mg DAILY24 02/24/18 19:00 03/26/18 18:59 Ondansetron HCl (Zofran) 4 mg Q4H PRN NAUSEA / VOMITING 02/25/18 01:00 03/27/18 00:59 UNV Propranolol HCl (Inderal) 80 mg DAILY 02/25/18 09:00 03/27/18 08:59 Zolpidem Tartrate (Ambien) 5 mg HS PRN INSOMNIA 02/24/18 16:30 03/26/18 16:29 Plan Discharge Date: February 25, 2018 Dicharge DX: 1. Acute bronchitis, 2. CAD Discharge Disposition: Stable Plan Medications per discharge Diet and activity as tolerated Follow up with PCP 1-2 weeks Discharge plans discussed with patient, he is his own decision maker and does understand and concur with plans Time spent 25 minutes Problem Qualifiers (1) CAD (coronary artery disease): Coronary Disease-Associated Artery/Lesion type: [place] artery [place] vs. transplanted heart: [place] heart DAVID CARROLL MD February 25, 2018 07:58
[2018-02-25] MEDS ORDERED: ZITHROMAX PO ONE (08:30)
[2018-02-25 08:47] VITALS: BP 122/55
[2018-02-25] MEDS ORDERED: INDERAL PO SCH (09:00)
[2018-02-25] MEDS ORDERED: PLAVIX PO SCH (09:00)
[2018-02-25 09:10] VITALS: BP 122/55
--- NOTE | 2018-02-25 09:15 | NUR ---
DISCHARGE PATIENT DISCHARGED FROM FACILITY. PATIENT INSTRUCTED ON HOME AND NEW MEDICATIONS AND FOLLOW UP APPT WITH PCP IN 5-7 DAYS. PATIENT VOICES UNDERSTANDING AND DENIES QUESTIONS AT THIS TIME. PATIENT LEFT FLOOR VIA WHEELCHAIR ACCOMPANIED BY STAFF TO PRIVATE VEHICLE DRIVEN BY SPOUSE.
--- NOTE | 2018-03-03 12:36 | HPH ---
ADMIT DATE: 02/25/2018 ADMISSION HISTORY AND PHYSICAL AND DISCHARGE SUMMARY CHIEF COMPLAINT: Initially chest pain. HISTORY OF PRESENT ILLNESS: The patient is a 77-year-old man with a past medical history significant for hypertension, coronary artery disease, dyslipidemia. He presented to the ER initially with complaints of chest pain. Symptoms were onset 46 hours, mild in nature, worse with exertion, radiated to the back. Workup in the ER was negative for any acute coronary event. He had mildly elevated white count and some elevated creatinine. For ER documentation, it was thought that he had pneumonia, but chest x-ray was negative for acute process. He did have a cough that is mildly productive. No other acute changes. PAST MEDICAL HISTORY: Includes hypertension, hyperlipidemia, osteoarthritis, CHF, chronic diastolic dysfunction and mild pulmonary hypertension. PAST SURGICAL HISTORY: He has had a heart catheterization 1 week ago. He had angioplasty and stent placement at that time. ALLERGIES: NO KNOWN DRUG ALLERGIES. HOME MEDICATIONS: List includes clonazepam 1 mg twice a day as needed, gemfibrozil 600 mg daily, Plavix 75 mg daily, propranolol 80 mg daily, takes eyedrops twice a day, Coenzyme Q10 50 mg daily and valsartan/hydrochlorothiazide 320/25 mg daily. SOCIAL HISTORY: No current alcohol, tobacco or illicit drug use history. Lives at home. FAMILY HISTORY: Negative for early coronary artery disease or diabetes. REVIEW OF SYSTEMS: CARDIAC: Denies chest pain. At time of exam, he presented to ER with complaints of chest discomfort. No shortness of breath and dyspnea on exertion. PULMONARY: Positive for productive cough. No pleuritic chest pain. GASTROINTESTINAL: No nausea, vomiting, diarrhea or constipation. All else negative in 10 point review of system except as in HPI. PHYSICAL EXAMINATION: VITAL SIGNS: Upon arrival to the ER: Height 172.7 cm, weight 86.2 kilograms. Temperature 98.7, pulse 81, respiratory rate is 20, blood pressure 150/99, O2 saturation 95% on room air. GENERAL: He is alert, in no acute distress at time of exam. HEENT: Pupils equal, round, reactive to light. Sclerae are anicteric. Oropharynx is clear. Mucous membranes are moist. NECK: Supple, no lymphadenopathy. CARDIOVASCULAR: At time of exam was regular rate and rhythm. LUNGS: Clear bilaterally. He has some mild upper respiratory congestion. ABDOMEN: Soft. Bowel sounds are present, nontender to palpation. EXTREMITIES: No cyanosis, clubbing or edema. NEUROLOGIC: Grossly nonfocal. INITIAL LABORATORY DATA: CBC: White count is 12.5, hemoglobin 14.4 and platelets 238. Differential: 80% neutrophils, 9% lymphocytes and 9% monocytes. Sodium 141, potassium 4.0, chloride 103, CO2 is 29, BUN 25, creatinine 1.42, glucose is 119, calcium is 9.2, total bilirubin 0.6, AST 24, ALT 25, alkaline phosphatase 72, total CK is 110, repeat is 69, CK-MB is 1.8, repeat is 1.4, troponin I is less than 0.02 x 2. ProBNP 139, total protein 7.2, albumin 4.2. UA, pH is 6.5, specific gravity is 1.010, all else is negative. H. pylori is negative. IMAGING STUDIES: Chest x-ray is negative acute process. ASSESSMENT AND PLAN: The patient is a 77-year-old with acute bronchitis with history of coronary artery disease with a stent placed 1 week ago with no evidence of acute cardiac ischemia. Also, with some very mild renal failure. His baseline is 1.3, creatinine 1.42. 1. We will continue his cardiovascular medications. 2. Nebulizer treatments scheduled and as needed. 3. IV antibiotics. 4. He improved overnight, is feeling well, we will discharge home on Z-DEON for the bronchitis. DISCHARGE MEDICATIONS: Resume his previous medications plus a Z-DEON as prescribed. DISCHARGE ACTIVITY: As tolerated. DISCHARGE FOLLOWUP: With primary care physician and Cardiology as scheduled. Discharge plans were discussed with the patient. He is his own decision maker. He does understand and concur with plans. Time spent on discharge and H and P on 02/25/2018 is 45 minutes. Taz Manrique MD DR: STU/sylvia JOB# [id number]
== END 2018-02-25 09:10 | disposition home or self-care (01) ==
LOC: ER 13:17 → MS 16:01 → INTOOBSV 16:01
PROVIDERS: ADMIT Internal Medicine; ATTEND Internal Medicine
DX: J20.9 Acute bronchitis, unspecified (principal); I25.10 Atherosclerotic heart disease of native coronary artery without angina pectoris; I10 Essential (primary) hypertension; J18.9 Pneumonia, unspecified organism
CPT/HCPCS: 36415 ×2; 71045; 80053; 81002; 82550 ×2; 82553 ×2; 83880; 84484 ×2; 85025; 85379; 85610; 85730; 86677; 87040 ×2; 87077; 87186; 93005; 94640 ×2; 96365; 96375; 99285; G0378 ×17; J0696 ×2; J1100; J1956; J2405; J7050 ×2; J7620 ×2; 96374; Q0144

== ENCOUNTER → 2018-03-22 | Outpatient (CLI) | payer MEDICARE, BC ==
[~2018-03-22] MED LIST changes: +AZIT250T PO
--- NOTE | 2018-03-22 10:16 | DIREP ---
PROCEDURE:XR SPINE CERVICAL 2 OR 3 VIEWS COMPARISON:None. INDICATIONS:M54.2 CERVICALGIA FINDINGS: ALIGNMENT:There is straightening of normal cervical curvature. There is trace anterolisthesis of C4 on C5 measuring 2 mm. VERTEBRAE:Normal. DISK SPACES:Severe disc height loss is seen at C3-C4 and C5-C6 and C6-C7. Anterior osteophytes are noted, worst at C5-C6. CERVICAL RIBS:None. OTHER:Dental hardware is noted. CONCLUSION:Degenerative changes as above. Anterolisthesis of C4 on C5 measuring 2 mm. Dictated by: Bola Dimas MD on 03/22/2018 at 10:12 AM
== END | disposition home or self-care (01) ==
LOC: RAD 08:42
PROVIDERS: ATTEND Nurse Practitioner
DX: M47.892 Other spondylosis, cervical region (principal)
CPT/HCPCS: 72040

== ENCOUNTER 2019-02-09 20:47 | Emergency (ER) | payer MEDICARE, BC ==
[~2019-02-09] VITALS: Ht 172.7 cm; Wt 83.9 kg
[~2019-02-09 20:47] MED LIST changes: +CLON1TAB11 PO; -CLON1TAB3 PO; -GEMF600T3 PO; +GEMF600T8 PO
[2019-02-09 21:09] VITALS: BP 123/64
--- NOTE | 2019-02-09 21:38 | ER.PDOC ---
General Chief Complaint: Requesting Medical Care Stated Complaint: WEAKNESS,FEVER TRAVEL OUT OF US: No Time seen by MD: 21:37 Source: patient Exam Limitations: no limitations History of Present Illness Initial Comments Weakness and fever today. Severity: moderate Associated Symptoms: weakness Allergies: Coded Allergies: No Known Allergies (Unverified , 07/28/17) Home Meds Active Scripts Azithromycin (ZITHROMAX) 250 Mg Tablet, 250 MG PO DAILY24 for 4 Days, #4 TAB Prov:DAVID CARROLL MD 02/25/18 Clopidogrel Bisulfate (PLAVIX) 75 Mg Tablet, 75 MG PO DAILY, #30 4 Refills Prov:CHRIS BARKLEY ANP [employer] 07/30/17 Reported Medications Gemfibrozil (GEMFIBROZIL) 600 Mg Tablet, 600 MG PO DAILY24 for CHOLESTEROL, TABLET 02/16/18 Chrm/Rosanna/ Bt-Org Peel/Gr T (APPLE CIDER VINEGAR PLUS TB) 1 Each Tablet, 2 EACH PO DAILY, TABLET 07/28/17 Ubidecarenone (COQ-10) 100 Mg Capsule, 50 MG PO DAILY, CAPSULE 07/28/17 Clonazepam (CLONAZEPAM) 1 Mg Tablet, 1 TAB PO BID PRN for ANXIETY, #60 TAB 2 Refills 07/28/17 [Tumeric] No Conflict Check, 1 TAB PO DAILY 07/28/17 Valsartan/Hydrochlorothiazide (DIOVAN HCT 320-25 MG TABLET) 1 Each Tablet, 1 TAB PO DAILY, #30 TAB 5 Refills 07/28/17 Propranolol Hcl (INDERAL LA) 80 Mg Cap.sa.24h, 1 CAP PO DAILY, #90 CAP 1 Refill 07/28/17 Tafluprost/Pf (ZIOPTAN 0.0015% EYE DROPS) 1 Each Droperette, 1 DROP BOTH EYES BID, #30 08/02/15 Past Medical History Surgical History: appendectomy, cholecystectomy, stent, other Social History Drug Use: none Review of Systems Constitutional: see HPI EENTM: no symptoms reported Respiratory: no symptoms reported Cardiovascular: no symptoms reported Gastrointestinal: no symptoms reported All Other Systems: Reviewed and Negative Physical Exam General Appearance: No Apparent Distress, WD/WN Neck: Non-Tender, Full Range of Motion, Supple, Normal Inspection Respiratory: chest non-tender, lungs clear, normal breath sounds, no respiratory distress CVS: reg rate & rhythm, no murmur, no gallop, pulses nml, nml capillary refill Gastrointestinal: Normal Bowel Sounds, No Organomegaly, No Pulsatile Mass, Non Tender Back: Normal Inspection Extremities: Normal Range of Motion 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 Skin: Normal Color Results/Orders Results/Orders Orders - EDILIA LAW MD Cbc With Auto Diff (02/09/19 21:34) Comprehensive Metabolic Panel (02/09/19 21:34) Creatine Kinase (02/09/19 21:34) Probnp B-Type Networking Specialist (02/09/19 21:34) Troponin I (02/09/19 21:34) Blood Culture (02/09/19 21:34) Ekg-Routine (02/09/19 21:34) Xr Chest 1v (02/09/19 21:34) Urinalysis (02/09/19 21:34) Strep Screen (02/09/19 21:50) Influenza A&B (02/09/19 21:50) Laboratory Tests Test 02/09/19 21:34 02/09/19 21:42 02/09/19 21:59 Urine Collection Type CCMS Urine Color YELLOW (YELLOW) Urine Appearance CLEAR (CLEAR) Urine Bilirubin NEGATIVE MG/DL (NEGATIVE) Urine Ketones NEGATIVE (NEGATIVE) Urine Specific [place] 1.020 (1.005-1.035) Urine pH 5 (5.0-6.0) Urine Protein NEGATIVE (NEGATIVE) Urine Urobilinogen NORMAL (NEGATIVE) Urine Nitrate NEGATIVE (NEGATAIVE) Urine Leukocyte Esterase NEGATIVE (NEGATIVE) Urine Blood NEGATIVE (NEGATIVE) Urine Glucose NORMAL (NEGATIVE) White Blood Count 10.9 10^3/uL (4.5-11.0) Red Blood Count 4.23 10^6/uL (4.50-5.90) L Hemoglobin 13.2 g/dL (13.9-16.3) L Hematocrit 37.8 % (37.0-53.0) Mean Corpuscular Volume 89.4 fL (78-100) Mean Corpuscular Hemoglobin 31.2 pg (26-34) Mean Corpuscular Hemoglobin Concent 34.9 g/dL (33-37) Red Cell Distribution Width 13.1 % (11.5-14.5) Platelet Count 198 10^3/uL (150-400) Mean Platelet Volume 10.1 fL (7.8-11.0) Neutrophils (%) (Auto) 73.5 % (41.0-85.0) Lymphocytes (%) (Auto) 13.5 % (24.0-44.0) L Monocytes (%) (Auto) 12.0 % (5.0-12.0) Neutrophils # (Auto) 8.0 10^3/uL (1.8-7.7) H Lymphocytes # (Auto) 1.5 10^3/uL (1.0-4.8) Monocytes # (Auto) 1.3 10^3/uL (0.3-0.8) H Absolute Immature Granulocyte (auto 0.02 10^3 u/L (0-2) Eosinophils % 0.5 % (0.0-5.0) Basophils % 0.3 % (0.0-0.2) H Basophils # 0.0 10^3/uL (0.0-0.1) Eosinophil Count 0.1 10^3/uL (0.0-0.2) Sodium Level 142 mmol/L (132-145) Potassium Level 3.4 mmol/L (3.6-5.2) L Chloride Level 105.0 mmol/L (96-109) Carbon Dioxide Level 19.9 mmol/L (20.0-32) L Anion Gap 20.5 Blood Urea Nitrogen 23 mg/dL (7-18) H Creatinine 1.53 mg/dL (0.59-1.40) H Estimated GFR () 53.5 (>/=60) BUN/Creatinine Ratio 15.0 Glucose Level 128 mg/dL (70-110) H Calcium Level 9.2 mg/dL (8.4-10.5) Total Bilirubin 0.8 mg/dL (0.2-1.0) Aspartate Amino Transferase (AST) 19 U/L (0-35) Alanine Aminotransferase (ALT) 20 U/L (12-78) Alkaline Phosphatase 72 U/L (50-136) Total Creatine Kinase 68 U/L (39-308) Troponin I < 0.02 ng/mL (0.00-0.05) Pro-B-Type Natriuretic Peptide 664 pg/mL (0-450) H Total Protein 6.8 g/dL (6.4-8.2) Albumin 3.8 g/dL (3.4-5.0) Globulin 3.0 Percent Immature Gran (Cell Imm) 0.20 % (0.00-0.50) Influenza Type A Antigen NEGATIVE (NEG) Influenza B Immunofluorescence NEGATIVE (NEG) Group A Streptococcus Screen NEGATIVE (NEGATIVE) Progress Progress Patient refused IVF, will drink at home. EKG/XRAY/CT/US EKG Comments: Sinus bradycardia XRAY: chest (No active disease) Course Sepsis Screening Results: Posi: NEGATIVE Sepsis Qualifier/Stage: NO DEFINITE RISK Duration or Total Time Spent w: 2 HRS Vitals & review Data Laboratory Tests Test 02/09/19 21:34 02/09/19 21:42 02/09/19 21:59 Urine Collection Type CCMS Urine Color YELLOW Urine Appearance CLEAR Urine Bilirubin NEGATIVE MG/DL Urine Ketones NEGATIVE Urine Specific [place] 1.020 Urine pH 5 Urine Protein NEGATIVE Urine Urobilinogen NORMAL Urine Nitrate NEGATIVE Urine Leukocyte Esterase NEGATIVE Urine Blood NEGATIVE Urine Glucose NORMAL White Blood Count 10.9 10^3/uL Red Blood Count 4.23 10^6/uL Hemoglobin 13.2 g/dL Hematocrit 37.8 % Mean Corpuscular Volume 89.4 fL Mean Corpuscular Hemoglobin 31.2 pg Mean Corpuscular Hemoglobin Concent 34.9 g/dL Red Cell Distribution Width 13.1 % Platelet Count 198 10^3/uL Mean Platelet Volume 10.1 fL Neutrophils (%) (Auto) 73.5 % Lymphocytes (%) (Auto) 13.5 % Monocytes (%) (Auto) 12.0 % Neutrophils # (Auto) 8.0 10^3/uL Lymphocytes # (Auto) 1.5 10^3/uL Monocytes # (Auto) 1.3 10^3/uL Absolute Immature Granulocyte (auto 0.02 10^3 u/L Eosinophils % 0.5 % Basophils % 0.3 % Basophils # 0.0 10^3/uL Eosinophil Count 0.1 10^3/uL Sodium Level 142 mmol/L Potassium Level 3.4 mmol/L Chloride Level 105.0 mmol/L Carbon Dioxide Level 19.9 mmol/L Anion Gap 20.5 Blood Urea Nitrogen 23 mg/dL Creatinine 1.53 mg/dL Estimated GFR () 53.5 BUN/Creatinine Ratio 15.0 Glucose Level 128 mg/dL Calcium Level 9.2 mg/dL Total Bilirubin 0.8 mg/dL Aspartate Amino Transf (AST/SGOT) 19 U/L Alanine Aminotransferase (ALT/SGPT) 20 U/L Alkaline Phosphatase 72 U/L Total Creatine Kinase 68 U/L Troponin I < 0.02 ng/mL Pro-B-Type Natriuretic Peptide 664 pg/mL Total Protein 6.8 g/dL Albumin 3.8 g/dL Globulin 3.0 Percent Immature Gran (Cell Imm) 0.20 % Influenza Type A Antigen NEGATIVE Influenza B Immunofluorescence NEGATIVE Group A Streptococcus Screen NEGATIVE LEVEL 1 SEPSIS INFECTION CRITE: ABX Therapy LEVEL 2-SIRS (LIST ALL THAT AP: [id number] Cardiovascular Evidence: Not Assessed or None Hematologic Evidence: None/Not assessed Hepatic Evidence: None/Not assessed Metabolic Evidence: None/Not assessed Neurological Evidence: None/Not assessed Respiratory Evidence: None/Not assessed Renal Evidence: None/Not assessed Departure Time of Disposition: 23:25 Disposition: 01 HOME, SELF-CARE Impression: Primary Impression: Viremia, unspecified Additional Impression: Weakness Condition: Stable Referrals: PATIENCE HENLEY MD (PCP) PRIMARY CARE PROVIDER Additional Instructions: Push fluids F/U with PCP in 2-3 days Duration or Time Spent with Pa: 60 mins Problem Qualifiers EDILIA LAW MD February 09, 2019 21:38
[2019-02-09 21:41] LABS: BILIRUBIN,URINE NEGATIVE (NEGATIVE); UROBILINOGEN,URINE NORMAL (NEGATIVE)
[2019-02-09 21:42] LABS: APPEARANCE,URINE CLEAR (CLEAR); UA COLOR YELLOW (YELLOW)
[2019-02-09 21:46] VITALS: BP 109/53
--- NOTE | 2019-02-09 21:49 | PCM.EKG ---
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
[2019-02-09 21:53] LABS: BASOPHIL % 0.3 % (0.0-0.2); EOSINOPHIL # 0.1 10^3/uL (0.0-0.2); EOSINOPHIL % 0.5 % (0.0-5.0); HEMOGLOBIN 13.2 g/dL (13.9-16.3); LYMPHOCYTES # 1.5 10^3/uL (1.0-4.8); LYMPHOCYTES % 13.5 % (24.0-44.0); MEAN CELL HGB 31.2 pg (26-34); MEAN CELL HGB CONCENTRATION 34.9 g/dL (33-37); MEAN CORP VOLUME 89.4 fL (78-100); MEAN PLATELET VOLUME 10.1 fL (7.8-11.0); MONOCYTES # 1.3 10^3/uL (0.3-0.8); NEUTROPHILS % 73.5 % (41.0-85.0); RED CELL DISTRIBUTION WIDTH 13.1 % (11.5-14.5); WHITE BLOOD CELL 10.9 10^3/uL (4.5-11.0)
--- NOTE | 2019-02-09 22:02 | DIREP ---
PROCEDURE:CHEST 1 VIEW COMPARISON:None. INDICATIONS:Weakness and fever FINDINGS: LUNGS/PLEURA:No significant pulmonary parenchymal abnormalities. No effusions. VASCULATURE:Normal. Unremarkable pulmonary vasculature. CARDIAC:Normal. No cardiac silhouette abnormality or cardiomegaly. MEDIASTINUM:Normal. No visible mass or adenopathy. BONES:Moderate degenerative changes in the thoracic spine. OTHER:Negative. CONCLUSION: 1. Normal chest. Dictated by: Juan F Snowden M.D. on 02/09/2019 at 10:01 PM
[2019-02-09 22:09] LABS: STREP SCREEN NEGATIVE (NEGATIVE)
[2019-02-09 22:30] VITALS: BP 100/50
[2019-02-09 22:36] LABS: ALANINE AMINOTRANSFERASE(ML) 20 U/L (12-78); ALKALINE PHOSPHATASE 72 U/L (50-136); ASPARTATE AMINO TRANSFERASE 19 U/L (0-35); CALCIUM 9.2 mg/dL (8.4-10.5); CARBON DIOXIDE 19.9 mmol/L (20.0-32); GLUCOSE 128 mg/dL (70-110)
[2019-02-09 23:30] VITALS: BP 119/61
[2019-02-10 06:52] VITALS: BP 119/61
== END 2019-02-09 23:35 | disposition home or self-care (01) ==
LOC: ER 20:47
DX: B34.9 Viral infection, unspecified (principal); Z79.899 Other long term (current) drug therapy; Z90.49 Acquired absence of other specified parts of digestive tract
CPT/HCPCS: 36415; 71045; 80053; 81002; 82550; 83880; 84484; 85025; 87040; 87070; 87804; 87880; 93005; 99285

== ENCOUNTER → 2019-04-17 | Outpatient (CLI) | payer MEDICARE, BC ==
[2019-04-17 17:15] LABS: CALCIUM 8.8 mg/dL (8.4-10.5)
== END | disposition home or self-care (01) ==
LOC: LAB 16:17
PROVIDERS: ATTEND Otolaryngology
DX: R06.02 Shortness of breath (principal)
CPT/HCPCS: 36415; 80048

== ENCOUNTER → 2019-05-17 | Outpatient (CLI) | payer MEDICARE, BC ==
[2019-05-17 16:57] LABS: BASOPHIL # 0.1 10^3/uL (0.0-0.1); BASOPHIL % 1.4 % (0.0-0.2); EOSINOPHIL # 0.2 10^3/uL (0.0-0.2); EOSINOPHIL % 3.3 % (0.0-5.0); HEMOGLOBIN 13.6 g/dL (13.9-16.3); LYMPHOCYTES # 1.7 10^3/uL (1.0-4.8); LYMPHOCYTES % 27.3 % (24.0-44.0); MEAN CELL HGB 30.4 pg (26-34); MEAN CELL HGB CONCENTRATION 33.4 g/dL (33-37); MEAN CORP VOLUME 90.8 fL (78-100); MEAN PLATELET VOLUME 9.8 fL (7.8-11.0); MONOCYTES % 15.4 % (5.0-12.0); NEUTROPHIL # 3.3 10^3/uL (1.8-7.7); NEUTROPHILS % 52.3 % (41.0-85.0); RED CELL DISTRIBUTION WIDTH 13.2 % (11.5-14.5); WHITE BLOOD CELL 6.4 10^3/uL (4.5-11.0)
[2019-05-17 17:13] LABS: CALCIUM 10.1 mg/dL (8.4-10.5); CARBON DIOXIDE 23.9 mmol/L (20.0-32)
== END | disposition home or self-care (01) ==
LOC: LAB 16:40
PROVIDERS: ATTEND Nurse Practitioner
DX: R53.81 Other malaise (principal); F41.9 Anxiety disorder, unspecified; I10 Essential (primary) hypertension
CPT/HCPCS: 36415; 80053; 85025

== ENCOUNTER → 2019-05-22 | Outpatient (CLI) | payer MEDICARE, BC ==
[2019-05-22 16:49] LABS: CARBON DIOXIDE 24.2 mmol/L (20.0-32)
== END | disposition home or self-care (01) ==
LOC: LAB 16:19
PROVIDERS: ATTEND Internal Medicine
DX: R94.4 Abnormal results of kidney function studies (principal)
CPT/HCPCS: 36415; 80048

== ENCOUNTER → 2019-06-28 | Outpatient (CLI) | payer MEDICARE, BC ==
[~2019-06-28] MED LIST changes: -PROP80CA12 PO; +PROP80CA52 PO; +SIMV40TA20 PO; -SIMV40TA3 PO
[2019-06-28 13:30] LABS: MEAN CORP HGB 30.4 pg (26-34); RED CELL DISTRIBUTION WIDTH 14.4 % (11.5-14.5)
[2019-06-28 14:15] LABS: CALCIUM 9.2 mg/dL (8.4-10.5)
== END | disposition home or self-care (01) ==
LOC: LAB 13:14
PROVIDERS: ATTEND Internal Medicine Cardiovascular Disease
DX: E78.2 Mixed hyperlipidemia (principal); I10 Essential (primary) hypertension
CPT/HCPCS: 36415; 80053; 84436; 84443; 85027

== ENCOUNTER 2019-10-01 21:53 | Emergency (ER) | payer MEDICARE, BC ==
[~2019-10-01] VITALS: Ht 175.3 cm; Wt 83.9 kg
--- NOTE | 2019-10-02 00:50 | ER.PDOC ---
General Chief Complaint: Requesting Medical Care Stated Complaint: COUGH, CONGESTION Time seen by MD: 00:46 Source: patient Exam Limitations: no limitations History of Present Illness Initial Comments Pt c/o persistent cough x 4-5 days with onset of fever today. Timing/Duration: gradual Severity: moderate Associated Symptoms: fever/chills, cough Allergies: Coded Allergies: No Known Allergies (Unverified , 07/28/17) Home Meds Active Scripts Azithromycin (ZITHROMAX) 250 Mg Tablet, 250 MG PO DAILY24 for 4 Days, #4 TAB Prov:DAVID CARROLL MD 02/25/18 Clopidogrel Bisulfate (PLAVIX) 75 Mg Tablet, 75 MG PO DAILY, #30 4 Refills Prov:CHRIS BARKLEY ANP GARMENT SEWER HAND 07/30/17 Reported Medications Gemfibrozil (GEMFIBROZIL) 600 Mg Tablet, 600 MG PO DAILY24 for CHOLESTEROL, TABLET 02/16/18 Chrm/Rosanna/ Bt-Org Peel/Gr T (APPLE CIDER VINEGAR PLUS TB) 1 Each Tablet, 2 EACH PO DAILY, TABLET 07/28/17 Ubidecarenone (COQ-10) 100 Mg Capsule, 50 MG PO DAILY, CAPSULE 07/28/17 Clonazepam (CLONAZEPAM) 1 Mg Tablet, 1 TAB PO BID PRN for ANXIETY, #60 TAB 2 Refills 07/28/17 [Tumeric] No Conflict Check, 1 TAB PO DAILY 07/28/17 Valsartan/Hydrochlorothiazide (DIOVAN HCT 320-25 MG TABLET) 1 Each Tablet, 1 TAB PO DAILY, #30 TAB 5 Refills 07/28/17 Propranolol Hcl (INDERAL LA) 80 Mg Cap.sa.24h, 1 CAP PO DAILY, #90 CAP 1 Refill 07/28/17 Tafluprost/Pf (ZIOPTAN 0.0015% EYE DROPS) 1 Each Droperette, 1 DROP BOTH EYES BID, #30 08/02/15 Constitutional: fever (101 at home) EENTM: no symptoms reported Respiratory: cough (scant sputum) Cardiovascular: no symptoms reported Gastrointestinal: no symptoms reported Musculoskeletal: no symptoms reported Skin: no symptoms reported Past Medical History Medical History: coronary artery disease Surgical History: cardiac cath, appendectomy, cholecystectomy, knee, stent Social History Smoking: non-smoker Drug Use: none Physical Exam General Appearance: alert, no distress Eye: eyes nml inspection Throat: pharynx nml Neck: nml inspection, supple Respiratory: no resp.distress, decreased air movement (IFRAH, LLL) Abdomen: non-tender CVS: reg rate & rhythm, heart sounds nml Skin: color nml, no rash Extremities: non-tender, no pedal edema NEURO/PSYCH: oriented x 3 Results/Orders Results/Orders Orders - ANA SÁNCHEZ DO Influenza A&B (10/02/19 00:49) Strep Screen (10/02/19 00:49) Xr Chest 2v (10/02/19 00:49) Laboratory Tests Test 10/02/19 01:15 Influenza Type A Antigen NEGATIVE (NEG) Influenza B Immunofluorescence NEGATIVE (NEG) Group A Streptococcus Screen NEGATIVE (NEGATIVE) Progress Progress flu and strep are negative EKG/XRAY/CT/US XRAY: chest (retrocardiac hazy infiltrate) Departure Time of Disposition: 01:48 Disposition: 01 HOME, SELF-CARE Impression: Primary Impression: Fever Additional Impression: Bronchitis Condition: Stable Patient Instructions: Acute Bronchitis, Fever, Adult Referrals: PATIENCE BOWENS MD (PCP) PRIMARY CARE PROVIDER Additional Instructions: Follow up with Dr. Bowens this week. REturn to ER if you are having any difficulty breathing. Take antibiotics until all gone. Duration or Time Spent with Pa: 1 hour Problem Qualifiers Primary Impression: Fever Fever type: unspecified Qualified Codes: R50.9 - Fever, unspecified ANA SÁNCHEZ DO Oct 02, 2019 00:50
[2019-10-02 01:58] VITALS: BP 159/70
[2019-10-02] MEDS ORDERED: TESSALON PERLE PO STA (01:58)
[2019-10-02] MEDS ORDERED: ROCEPHIN IM ONE (02:00)
[2019-10-02] MEDS ORDERED: ZITHROMAX PO ONE (02:00)
[2019-10-02] MEDS ORDERED: LIDOCAINE 1% VIAL ONE (02:02)
[2019-10-02] MEDS ORDERED: ZITHROMAX ONE (02:02)
[2019-10-02] MEDS ORDERED: ROCEPHIN ONE (02:02)
[2019-10-02] MEDS ORDERED: TESSALON PERLE PO ONE (02:02)
[2019-10-02 02:12] VITALS: BP 160/86
--- NOTE | 2019-10-02 02:31 | DIREP ---
PROCEDURE:CHEST 2 VIEWS COMPARISON:[facility], CR, XRAY CHEST 2 VWS, 07/28/2017, 11:22 AM. [facility], CR, XRAY CHEST SINGLE VW, 02/09/2019, 09:40 PM. INDICATIONS:fever and cough FINDINGS: LUNGS/PLEURA:No significant pulmonary parenchymal abnormalities. No effusions. VASCULATURE:Normal. Unremarkable pulmonary vasculature. CARDIAC:Normal. No cardiac silhouette abnormality or cardiomegaly. MEDIASTINUM:Normal. No visible mass or adenopathy. BONES:No acute pathology. Old anterior wedging compression deformity in the upper lumbar spine. OTHER:Negative. CONCLUSION:No acute cardiac or pulmonary disease. Dictated by: Bola Mendoza M.D. on 10/02/2019 at 02:29 AM
== END 2019-10-02 02:20 | disposition home or self-care (01) ==
LOC: ER 21:53
DX: J40 Bronchitis, not specified as acute or chronic (principal); I25.10 Atherosclerotic heart disease of native coronary artery without angina pectoris; Z79.899 Other long term (current) drug therapy; Z90.49 Acquired absence of other specified parts of digestive tract
CPT/HCPCS: 71046; 87070; 87804 ×2; 87880; 96372; 99285; J0696; J2001; Q0144

== ENCOUNTER → 2020-03-21 | Outpatient (CLI) | payer MEDICARE, BC ==
[2020-03-21 11:41] LABS: BASOPHIL % 0.5 % (0.0-0.2); EOSINOPHIL # 0.2 10^3/uL (0.0-0.2); EOSINOPHIL % 2.4 % (0.0-5.0); LYMPHOCYTES # 1.26 10^3/uL1 (1.0-4.8); LYMPHOCYTES % 20.1 % (24.0-44.0); MEAN CORP HGB 30.2 pg (26-34); MONOCYTES # 0.7 10^3/uL (0.3-0.8); MONOCYTES % 10.5 % (5.0-12.0); NEUTROPHIL # 4.2 10^3/uL (1.8-7.7); NEUTROPHILS % 66.2 % (41.0-85.0); PLATELET COUNT 168 10^3/uL (150-400); RED CELL DISTRIBUTION WIDTH 13.7 % (11.5-14.5)
[2020-03-21 12:01] LABS: CARBON DIOXIDE 29.1 mmol/L (20.0-32)
--- NOTE | 2020-03-21 12:09 | DIREP ---
PROCEDURE:CHEST 2 VIEWS COMPARISON:[facility], CR, XRAY CHEST 2 VWS, 10/02/2019, 00:58 AM. [facility], CR, XRAY CHEST SINGLE VW, 07/14/2016, 09:14 AM. INDICATIONS:R06.02 SHORTNESS OF BREATH FINDINGS: LUNGS/PLEURA:No significant pulmonary parenchymal abnormalities. No effusions. VASCULATURE:Normal. Unremarkable pulmonary vasculature. CARDIAC:Mild cardiomegaly. MEDIASTINUM:Normal. No visible mass or adenopathy. BONES:Normal. No fracture or visible bony lesion. OTHER:Negative. CONCLUSION:No acute findings. No significant interval change Dictated by: James Zaragoza MD on 03/21/2020 at 12:05 PM
== END | disposition home or self-care (01) ==
LOC: LAB 11:06
PROVIDERS: ATTEND Nurse Practitioner
DX: I51.7 Cardiomegaly (principal); R06.02 Shortness of breath
CPT/HCPCS: 36415; 71046; 80053; 83880; 85025

== ENCOUNTER 2020-05-16 11:46 | Emergency (ER) | payer MEDICARE, BC ==
[~2020-05-16] VITALS: Ht 172.7 cm; Wt 85.3 kg
[~2020-05-16 11:46] MED LIST changes: -ASPI-655 PO; +ASPI-929 PO
[2020-05-16 12:13] VITALS: BP 142/71
--- NOTE | 2020-05-16 12:23 | PCM.EKG ---
[facility] Test Date: 2020-05-16 Test Time: 12:05:12 Pat Name: ANTONIETTA FIELDS Department: [id number] Room: Gender: M Registration Coordinator: [place] : 1940 Requested By: EDILIA LAW Order Number: [id number] Reading MD: Edilia LAW Measurements Intervals [place] Rate: 99 P: LA: QRS: -31 QRSD: 81 T: 51 QT: 332 QTc: 426 Interpretive Statements Atrial fibrillation Multiple ventricular premature complexes Left axis deviation RSR' in V1 or V2, probably normal variant Consider anterior infarct Compared to ECG 02/09/2019 21:48:52 Ventricular premature complex(es) now present Left-axis deviation now present RSR' in V1 or V2 now present Myocardial infarct finding now present Sinus bradycardia no longer present Electronically Signed On 05-19-2020 6:48:37 CDT by Edilia LAW Please click the below link to view image of tracing.
[2020-05-16] MEDS ORDERED: CARDIZEM IV STA (12:30)
[2020-05-16] MEDS ORDERED: DILTIAZEM HCL IV ONE (12:31)
[2020-05-16 12:36] LABS: BASOPHIL % 0.4 % (0.0-0.2); EOSINOPHIL # 0.2 10^3/uL (0.0-0.2); EOSINOPHIL % 2.2 % (0.0-5.0); LYMPHOCYTES # 1.27 10^3/uL1 (1.0-4.8); LYMPHOCYTES % 15.6 % (24.0-44.0); MEAN CORP HGB 30.6 pg (26-34); MONOCYTES # 0.8 10^3/uL (0.3-0.8); MONOCYTES % 9.6 % (5.0-12.0); NEUTROPHIL # 5.9 10^3/uL (1.8-7.7); PLATELET COUNT 179 10^3/uL (150-400); RED CELL DISTRIBUTION WIDTH 13.8 % (11.5-14.5)
--- NOTE | 2020-05-16 12:38 | ER.PDOC ---
General Chief Complaint: Dizziness Stated Complaint: SOB/DIZZY/FAST HEART RATE Time seen by MD: 12:37 Source: patient Exam Limitations: no limitations History of Present Illness Initial Comments SOB and fast heart rate today. No chest pain, cough, fever or chills. Patient has a cardiac stent placed 2 weeks ago. Severity: moderate Prior Episodes/Possible Cause: no prior episodes Associated Symptoms: other (dizziness) Allergies: Coded Allergies: No Known Allergies (Unverified , 07/28/17) Home Meds Active Scripts Azithromycin (ZITHROMAX) 250 Mg Tablet, 250 MG PO DAILY24 for 4 Days, #4 TAB Prov:DAVID CARROLL MD 02/25/18 Clopidogrel Bisulfate (PLAVIX) 75 Mg Tablet, 75 MG PO DAILY, #30 4 Refills Prov:CHRIS BARKLEY FRAME CATCHER 07/30/17 Reported Medications Gemfibrozil (GEMFIBROZIL) 600 Mg Tablet, 600 MG PO DAILY24 for CHOLESTEROL, T ABLET 02/16/18 Chrm/Rosanna/ Bt-Org Peel/Gr T (APPLE CIDER VINEGAR PLUS TB) 1 Each Tablet, 2 EACH PO DAILY, TABLET 07/28/17 Ubidecarenone (COQ-10) 100 Mg Capsule, 50 MG PO DAILY, CAPSULE 07/28/17 Clonazepam (CLONAZEPAM) 1 Mg Tablet, 1 TAB PO BID PRN for ANXIETY, #60 TAB 2 Refills 07/28/17 [Tumeric] No Conflict Check, 1 TAB PO DAILY 07/28/17 Valsartan/Hydrochlorothiazide (DIOVAN HCT 320-25 MG TABLET) 1 Each Tablet, 1 TAB PO DAILY, #30 TAB 5 Refills 07/28/17 Propranolol Hcl (INDERAL LA) 80 Mg Cap.sa.24h, 1 CAP PO DAILY, #90 CAP 1 Refill 07/28/17 Tafluprost/Pf (ZIOPTAN 0.0015% EYE DROPS) 1 Each Droperette, 1 DROP BOTH EYES BID, #30 08/02/15 Past Medical History Medical History: cardiac problems, high cholesterol, hypertension Surgical History: appendectomy, stent Social History Alcohol Use: none Drug Use: none Review of Systems Constitutional: no symptoms reported EENTM: no symptoms reported Respiratory: see HPI Cardiovascular: see HPI Gastrointestinal: no symptoms reported Genitourinary: no symptoms reported All Other Systems: Reviewed and Negative Physical Exam General Appearance: No Apparent Distress, WD/WN Neck: Non-Tender, Full Range of Motion, Supple, Normal Inspection Respiratory: chest non-tender, lungs clear, normal breath sounds, no respiratory distress, no accessory muscle use Cardiovascular: Normal Peripheral Pulses, No Edema, No Gallop, No JVD, No Murm ur, Tachycardia, Irregularly Irregular Gastrointestinal: Normal Bowel Sounds, No Organomegaly, No Pulsatile Mass, Non Tender, Soft Extremities: Normal Range of Motion, Non-Tender, Normal Inspection, No Pedal Edema, No Calf Tenderness, Normal Capillary Refill 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 (05/16/20 12:21) D-Dimer (05/16/20 12:21) Xr Chest 1v (05/16/20 12:21) Ekg-Routine (05/16/20 12:21) Diltiazem Hcl (Cardizem) (05/16/20 12:30) Diltiazem Hcl (Diltiazem Hcl) (05/16/20 12:31) Vital Signs Date Time Temp Pulse Resp B/P (MAP) Pulse Ox O2 Delivery O2 Flow Rate FiO2 05/16/20 12:45 107 05/16/20 12:13 98.0 114 18 05/16/20 12:13 98.0 114 18 97 05/16/20 12:13 98.0 114 18 142/71 (94) 97 Administered Medications Medications (Trade) Dose Ordered Sig/Phillip Route PRN Reason Start Time Stop Time Status Last Admin Dose Admin Diltiazem HCl (Cardizem) 10 mg STAT STAT IV 05/16/20 12:30 05/16/20 12:31 DC 05/16/20 12:45 10 MG Laboratory Tests Test 05/16/20 12:30 White Blood Count 8.2 10^3/uL (4.5-11.0) Red Blood Count 4.51 10^6/uL (4.50-5.90) Hemoglobin 13.8 g/dL (13.9-16.3) L Hematocrit 40.4 % (37.0-53.0) Mean Corpuscular Volume 89.6 fL (78-100) Mean Corpuscular Hemoglobin 30.6 pg (26-34) Mean Corpuscular Hemoglobin Concent 34.2 g/dL (33-36.5) Red Cell Distribution Width 13.8 % (11.5-14.5) Platelet Count 179 10^3/uL (150-400) Mean Platelet Volume 9.6 fL (7.8-11.0) Neutrophils (%) (Auto) 72.0 % (41.0-85.0) Lymphocytes (%) (Auto) 15.6 % (24.0-44.0) L Monocytes (%) (Auto) 9.6 % (5.0-12.0) Neutrophils # (Auto) 5.9 10^3/uL (1.8-7.7) Lymphocytes # (Auto) 1.27 10^3/uL1 (1.0-4.8) Monocytes # (Auto) 0.8 10^3/uL (0.3-0.8) Absolute Immature Granulocyte (auto 0.02 10^3 u/L (0-2) Absolute Eosinophils (auto) 0.2 10^3/uL (0.0-0.2) Immature Granulocytes % 0.20 % (0.00-0.50) Eosinophils % 2.2 % (0.0-5.0) Basophils % 0.4 % (0.0-0.2) H Basophils # 0.0 10^3/uL (0.0-0.1) Prothrombin Time 10.2 SEC (9.3-11.3) Prothrombin Time INR (Non-Therap) 1.0 Activated Partial Thromboplast Time 25.0 SEC (24.67-30.72) D-Dimer 0.66 mg/L (0.19-0.49) *H Sodium Level 141 mmol/L (132-145) Potassium Level 3.7 mmol/L (3.6-5.2) Chloride Level 106.0 mmol/L (96-109) Carbon Dioxide Level 23.0 mmol/L (20.0-32) Anion Gap 15.7 Blood Urea Nitrogen 21 mg/dL (7-18) H Creatinine 1.24 mg/dL (0.59-1.40) Estimated GFR () 68.0 (>/=60) Est GFR (CKD-EPI)(Non-Afr Senegalese) 56.2 (>/=60) BUN/Creatinine Ratio 16.0 Glucose Level 116 mg/dL (70-110) H Calcium Level 9.0 mg/dL (8.4-10.5) Total Bilirubin 0.7 mg/dL (0.2-1.0) Aspartate Amino Transferase (AST) 23 U/L (0-35) Alanine Aminotransferase (ALT) 24 U/L (12-78) Alkaline Phosphatase 83 U/L (50-136) Total Creatine Kinase 98 U/L (39-308) Creatine Kinase MB 2.6 ng/mL (0.5-3.6) Troponin I < 0.02 ng/mL (0.00-0.05) Pro-B-Type Natriuretic Peptide 243 pg/mL (0-450) Total Protein 7.2 g/dL (6.4-8.2) Albumin 3.9 g/dL (3.4-5.0) Globulin 3.3 Progress Progress Patient feeling better and heart rate in the 70s and 80s after 10mg Cardizem. Spoke with Dr. Felipe and he adjusted his medications and will also call in [facility] for him. Labs are unremarkable. Dr. Felipe is okay for patient to go home. EKG/XRAY/CT/US EKG Comments: A fib XRAY: chest (No active disease) Departure Time of Disposition: 14:03 Disposition: 01 HOME, SELF-CARE Impression: Primary Impression: Atrial fibrillation with rapid ventricular response Additional Impression: Shortness of breath Condition: Improved Referrals: PATIENCE HENLEY MD (PCP) PRIMARY CARE PROVIDER Additional Instructions: Decrease Amlodipine to 5mg daily Dr[address] Felipe will call a new prescription for Metoprolol 100mg ER and [facility] Keep a blood pressure diary F/U with your Pot Annealer in 2-3 days F/U with your PCP in 1-2 days Return to ED if worsening symptoms or concerns Duration or Time Spent with Pa: 60 min Problem Qualifiers EDILIA LAW MD May 16, 2020 12:38
--- NOTE | 2020-05-16 12:56 | NUR ---
[facility] called to report d-dimer of 0.66. Dr Almazan aware.
--- NOTE | 2020-05-16 12:59 | DIREP ---
PROCEDURE:CHEST 1 VIEW COMPARISON:[facility], CR, XRAY CHEST 2 VWS, 03/21/2020, 11:20 AM. INDICATIONS:shortness of breath FINDINGS: LUNGS/PLEURA:No significant pulmonary parenchymal abnormalities. No effusions. VASCULATURE:Normal. Unremarkable pulmonary vasculature. CARDIAC:Normal. No cardiac silhouette abnormality or cardiomegaly. MEDIASTINUM:Normal. No visible mass or adenopathy. BONES:Normal. No fracture or visible bony lesion. OTHER:Negative. CONCLUSION: 1. No active cardiopulmonary disease demonstrated. Dictated by: Al Murguia M.D. on 05/16/2020 at 12:57 PM
[2020-05-16 13:04] LABS: ALANINE AMINOTRANSFERASE(ML) 24 U/L (12-78); ALKALINE PHOSPHATASE 83 U/L (50-136); ASPARTATE AMINO TRANSFERASE 23 U/L (0-35); GLUCOSE 116 mg/dL (70-110)
--- NOTE | 2020-05-16 13:51 | NUR ---
TINO DOCTOR ANI ON THE PHONE WITH DOCTOR JIMÉNEZ AT THIS TIMES DISCUSSING PATIENT.
[2020-05-16 14:10] VITALS: BP 118/79
== END 2020-05-16 14:30 | disposition home or self-care (01) ==
LOC: ER 11:46
DX: I48.91 Unspecified atrial fibrillation (principal); I10 Essential (primary) hypertension; E78.00 Pure hypercholesterolemia, unspecified; Z79.899 Other long term (current) drug therapy; Z95.5 Presence of coronary angioplasty implant and graft
CPT/HCPCS: 36415; 71045; 80053; 82550; 82553; 83880; 84484; 85025; 85379; 85610; 85730; 93005; 96374; 99285; J3490

== ENCOUNTER 2020-08-16 18:34 | Emergency (ER) | payer MEDICARE, BC ==
[~2020-08-16] VITALS: Ht 172.7 cm; Wt 86.2 kg
[2020-08-16 19:03] VITALS: BP 168/78
--- NOTE | 2020-08-16 19:25 | ER.PDOC ---
General Chief Complaint: General Complaint Stated Complaint: HIGH BP TRAVEL OUT OF US: No Time seen by MD: 18:55 Source: patient, family Exam Limitations: no limitations History of Present Illness Initial Comments Pt has been tracking his BP 4-6xday. He and his noted that it kept going up today--virtually every time they would take it. When the systolic got to 198, he took a 100mg Metoprolol and then drove over here which takes about an hour. By arrival, his BP was down to 168/78. At no point did he feel any REDDING, Chest pain or any neuro changes. Pt is under a great deal of stress: son and family is living with because he lost his job. They have a 16 y/o and an 8 y/o that is more busy than they are used to. Additionally, his older sister back in April and just yesterday, his closest sister yesterday. This too is adding stress right now. Pt and are feeling much better after visiting for a while. Timing/Duration: 24 hours Severity: mild Associated Symptoms: denies symptoms Allergies: Coded Allergies: No Known Allergies (Unverified , 07/28/17) Home Meds Active Scripts Azithromycin (ZITHROMAX) 250 Mg Tablet, 250 MG PO DAILY24 for 4 Days, #4 TAB Prov:DAVID CARROLL MD 02/25/18 Clopidogrel Bisulfate (PLAVIX) 75 Mg Tablet, 75 MG PO DAILY, #30 4 Refills Prov:CHRIS BARKLEY LEASE PURCHASE DRIVER 07/30/17 Reported Medications Gemfibrozil (GEMFIBROZIL) 600 Mg Tablet, 600 MG PO DAILY24 for CHOLESTEROL, TABLET 02/16/18 Magy/Rosanna/ Bt-Org Peel/Gr T (APPLE CIDER VINEGAR PLUS TB) 1 Each Tablet, 2 EACH PO DAILY, TABLET 07/28/17 Ubidecarenone (COQ-10) 100 Mg Capsule, 50 MG PO DAILY, CAPSULE 07/28/17 Clonazepam (CLONAZEPAM) 1 Mg Tablet, 1 TAB PO BID PRN for ANXIETY, #60 TAB 2 Refills 07/28/17 [Tumeric] No Conflict Check, 1 TAB PO DAILY 07/28/17 Valsartan/Hydrochlorothiazide (DIOVAN HCT 320-25 MG TABLET) 1 Each Tablet, 1 TAB PO DAILY, #30 TAB 5 Refills 07/28/17 Propranolol Hcl (INDERAL LA) 80 Mg Cap.sa.24h, 1 CAP PO DAILY, #90 CAP 1 Refill 07/28/17 Tafluprost/Pf (ZIOPTAN 0.0015% EYE DROPS) 1 Each Droperette, 1 DROP BOTH EYES BID, #30 08/02/15 Past Medical History Medical History: cardiac problems, hypertension, renal disease Surgical History: appendectomy, cholecystectomy, knee, stent Social History Alcohol Use: none Drug Use: none Review of Systems Constitutional: other (complains of fatigue with his BP meds) Cardiovascular: see HPI All Other Systems: Reviewed and Negative Physical Exam General Appearance: No Apparent Distress, WD/WN EENT: eyes nml inspection Neck: Non-Tender, Full Range of Motion Respiratory: chest non-tender, lungs clear, normal breath sounds CVS: reg rate & rhythm, no gallop, pulses nml, murmur, other (aortic stenosis murmur 3/6) Gastrointestinal: Normal Bowel Sounds, No Organomegaly, No Pulsatile Mass, Non Tender Extremities: Normal Range of Motion, Non-Tender Neurologic/Psychiatric: tank calibrator II-XII NML as Tested, No Motor/Sensory Deficits, Alert, Normal Mood/Affect, Oriented x 3 Skin: Normal Color, Warm/Dry Lymphatic: No Adenopathy Results/Orders Results/Orders Vital Signs Date Time Temp Pulse Resp B/P (MAP) Pulse Ox O2 Delivery O2 Flow Rate FiO2 08/16/20 19:03 98.0 63 16 08/16/20 19:03 98.0 63 16 168/78 (108) 97 Room Air 08/16/20 19:03 98.0 63 16 97 ER DEPART Departure Time of Disposition: 19:29 Disposition: 01 HOME, SELF-CARE Impression: Primary Impression: Hypertension Additional Impressions: Anxiety Stressful life event affecting family Condition: Stable Referrals: PATIENCE HENLEY MD (PCP) PRIMARY CARE PROVIDER Duration or Time Spent with Pa: 15m Problem Qualifiers DERRELL SOLARES MD Aug 16, 2020 19:25
== END 2020-08-16 19:35 | disposition home or self-care (01) ==
LOC: ER 18:34
DX: I10 Essential (primary) hypertension (principal); F41.9 Anxiety disorder, unspecified; Z63.79 Other stressful life events affecting family and household; Z79.899 Other long term (current) drug therapy; Z90.49 Acquired absence of other specified parts of digestive tract
CPT/HCPCS: 99281

== ENCOUNTER → 2020-09-13 | Outpatient (CLI) | payer MEDICARE, BC ==
[2020-09-13 12:31] LABS: MEAN CORP HGB 29.6 pg (26-34)
[2020-09-13 12:54] LABS: CALCIUM 8.8 mg/dL (8.4-10.5)
== END | disposition home or self-care (01) ==
LOC: LAB 12:15
PROVIDERS: ATTEND Nurse Practitioner Family
DX: I10 Essential (primary) hypertension (principal)
CPT/HCPCS: 36415; 80053; 85027

== ENCOUNTER 2021-02-08 21:47 | Emergency (ER) | payer MEDICARE, BC ==
[~2021-02-08] VITALS: Ht 172.7 cm; Wt 88.0 kg
[~2021-02-08 21:47] MED LIST changes: +GEMF600T20 PO; -GEMF600T8 PO; -LISI-410 PO; +LISI20TA21 PO; -VALS1TAB22 PO; +VALS1TAB23 PO
--- NOTE | 2021-02-08 21:47 | NUR ---
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 PT REPORTS FEVER, UNSURE OF HOW HIGH, SEVERAL DIFFERENT READINGS NOTED. PT 99.2 ORAL UPON PRESENTATION, NO CHEST PAIN. NOTED. 18 GA R AC, LABS DRAWN. PT CARLY WELL., ERP AT BEDSIDE.
[2021-02-08 22:19] VITALS: BP_SYST 131; BP_SYST 161; BP_DIAS 53
--- NOTE | 2021-02-08 22:52 | ER.PDOC ---
General Chief Complaint: Fever Stated Complaint: FEVER, FOLLOWING HEART SURGERY TRAVEL OUT OF US: No Time seen by MD: 22:45 Source: patient Exam Limitations: no limitations History of Present Illness Initial Comments Patient discharged home from [facility] today following an aortic valve replacement surgery yesterday. He took his temperature tonight and it read 102 and took again, got 99 and he has values fluctuating between 99 and 100 so he thought he may be having a fever. He is here today to verify if he is having fever. Temperature taken here is 99.2. He has no other complaints. He denies cough or burning with urination. Severity: mild Associated Symptoms: denies symptoms Allergies: Coded Allergies: No Known Allergies (Unverified , 07/28/17) Home Meds Active Scripts Azithromycin (ZITHROMAX) 250 Mg Tablet, 250 MG PO DAILY24 for 4 Days, #4 TAB Prov:DAVID CARROLL MD 02/25/18 Clopidogrel Bisulfate (PLAVIX) 75 Mg Tablet, 75 MG PO DAILY, #30 4 Refills Prov:CHRIS BARKLEY ANP TRENCH SHOVEL OPERATOR 07/30/17 Reported Medications Gemfibrozil (GEMFIBROZIL) 600 Mg Tablet, 600 MG PO DAILY24 for CHOLESTEROL, TABLET 02/16/18 Chrm/Rosanna/ Bt-Org Peel/Gr T (APPLE CIDER VINEGAR PLUS TB) 1 Each Tablet, 2 EACH PO DAILY, TABLET 07/28/17 Ubidecarenone (COQ-10) 100 Mg Capsule, 50 MG PO DAILY, CAPSULE 07/28/17 Clonazepam (CLONAZEPAM) 1 Mg Tablet, 1 TAB PO BID PRN for ANXIETY, #60 TAB 2 Refills 07/28/17 [Tumeric] No Conflict Check, 1 TAB PO DAILY 07/28/17 Valsartan/Hydrochlorothiazide (DIOVAN HCT 320-25 MG TABLET) 1 Each Tablet, 1 TAB PO DAILY, #30 TAB 5 Refills 07/28/17 Propranolol Hcl (INDERAL LA) 80 Mg Cap.sa.24h, 1 CAP PO DAILY, #90 CAP 1 Refill 07/28/17 Tafluprost/Pf (ZIOPTAN 0.0015% EYE DROPS) 1 Each Droperette, 1 DROP BOTH EYES BID, #30 08/02/15 Past Medical History Medical History: cardiac problems, hypertension Surgical History: appendectomy, cholecystectomy, knee, stent Family History Significant Family History: no pertinent family hx Social History Smoking: non-smoker Alcohol Use: none Drug Use: none Review of Systems Constitutional: see HPI EENTM: no symptoms reported Respiratory: no symptoms reported Cardiovascular: no symptoms reported Gastrointestinal: no symptoms reported All Other Systems: Reviewed and Negative Physical Exam General Appearance: No Apparent Distress, WD/WN Neck: Non-Tender, Full Range of Motion, Supple, Normal Inspection Respiratory: chest non-tender, lungs clear, normal breath sounds, no respiratory distress, no accessory muscle use CVS: reg rate & rhythm, no murmur, no gallop, pulses nml, nml capillary refill Gastrointestinal: Normal Bowel Sounds, No Organomegaly, No Pulsatile Mass, Non Tender Back: Normal Inspection Extremities: Normal Range of Motion, Non-Tender Neurologic/Psychiatric: residence life coordinator II-XII NML as Tested, No Motor/Sensory Deficits, Alert Skin: Normal Color Lymphatic: No Adenopathy Results/Orders Results/Orders Vital Signs Date Time Temp Pulse Resp B/P (MAP) Pulse Ox O2 Delivery O2 Flow Rate FiO2 02/08/21 22:19 99.2 86 16 94 02/08/21 22:19 99.2 86 16 161/53 (89) 94 Room Air 02/08/21 22:19 99.2 86 16 Progress Progress Temperature taken is 99.2. Patient has no fever. I discussed with him if he wanted me to order some blood work including chest x-ray and a urinalysis but he refused since he is not having fever. He told me that if he runs a fever, he will come back but at this time he wants to go home and rest. ER DEPART Departure Time of Disposition: 22:51 Disposition: 01 HOME, SELF-CARE Impression: Primary Impression: Fever Condition: Stable Referrals: PATIENCE HENLEY MD (PCP) PRIMARY CARE PROVIDER Additional Instructions: F/U with your Surgeon as needed Return to ED if any concerns Duration or Time Spent with Pa: 10 min Problem Qualifiers Primary Impression: Fever Fever type: post-procedural Qualified Codes: R50.82 - Postprocedural fever EDILIA LAW MD February 08, 2021 22:52
--- NOTE | 2021-02-08 23:34 | NUR ---
DC INSTRUCTIONS GIVEN TO PT. PT VERBALIZED UNDERSTANDING. DC TEMP 98.7, ENCOURAGED MORE FLUIDS FOR HYDRATION. ASSISTED PT TO WC, ESCORTED TO POV.
== END 2021-02-08 23:25 | disposition home or self-care (01) ==
LOC: ER 21:47
DX: R50.82 Postprocedural fever (principal); I10 Essential (primary) hypertension; Z79.899 Other long term (current) drug therapy; Z90.49 Acquired absence of other specified parts of digestive tract; Z95.2 Presence of prosthetic heart valve
CPT/HCPCS: 99281

== ENCOUNTER → 2021-07-23 | Outpatient (CLI) | payer MEDICARE, BC | END | disposition home or self-care (01) | LOC: NPLAB 17:13 | PROVIDERS: ATTEND Nurse Practitioner Adult Health | DX: R05.1 Acute cough (principal); R51.9 Headache, unspecified; R09.81 Nasal congestion; Z20.822 Contact with and (suspected) exposure to COVID-19 | CPT/HCPCS: 87426 ==

== ENCOUNTER → 2021-08-19 | Outpatient (CLI) | payer MEDICARE, BC | END | disposition home or self-care (01) | LOC: NPLAB 09:57 | PROVIDERS: ATTEND Internal Medicine | DX: Z20.822 Contact with and (suspected) exposure to COVID-19 (principal) | CPT/HCPCS: 87426 ==

== ENCOUNTER → 2021-10-23 | Outpatient (CLI) | payer MEDICARE, BC ==
--- NOTE | 2021-10-23 14:59 | DIREP ---
PROCEDURE:CHEST 2 VIEWS COMPARISON:[facility], CR, XRAY CHEST SINGLE VW, 05/16/2020, 12:29 PM. INDICATIONS:R07.9 CHEST PAIN FINDINGS: LUNGS/PLEURA:Right costophrenic not view. No focal consolidation, pleural effusion, or pneumothorax. VASCULATURE:Normal. Unremarkable pulmonary vasculature. CARDIAC:Heart size within normal limits. Status post valvuloplasty. Coronary artery stent again seen. MEDIASTINUM:Normal. No visible mass or adenopathy. BONES:Stable compression deformities within the lower thoracic upper lumbar vertebra. Degenerative change without evidence of acute osseus abnormality. OTHER:Negative. CONCLUSION: 1. No acute cardiopulmonary process. Dictated by: Juan Christensen MD on 10/23/2021 at 02:48 PM
== END | disposition home or self-care (01) ==
LOC: RAD 13:27
PROVIDERS: ATTEND Internal Medicine
DX: R07.9 Chest pain, unspecified (principal)
CPT/HCPCS: 71046

== ENCOUNTER 2021-10-25 13:00 | Emergency (ER) | payer MEDICARE, BC ==
[~2021-10-25] VITALS: Ht 172.7 cm; Wt 86.2 kg
[2021-10-25 13:28] VITALS: BP 157/71
--- NOTE | 2021-10-25 13:34 | NUR ---
ARRIVAL PATIENT ARRIVED TO ED4 AMBULATORY WITH SPOUSE, C/O DIZZINESS AND MULTIPLE FALLS TODAY, THE LAST FALL CAUSED A LACERATION TO THE BACK OF THE HEAD, CALLED HIS OFFSET PRINTER AND WAS TOLD TO COME TO THE ED FOR EVAL, VITAL SIGNS OBTAINED AND DOCTOR TEO NOTIFIED OF PATIENT'S ARRIVAL.
[2021-10-25] MEDS ORDERED: NS 1000ML 1,000 ML ONE (13:59)
[2021-10-25] MEDS ORDERED: NS 1000ML 1,000 ML IV ONE (14:00)
--- NOTE | 2021-10-25 14:00 | ER.PDOC ---
General Chief Complaint: Head Injury Stated Complaint: HEAD INJURY Time seen by MD: 13:57 Source: patient Exam Limitations: no limitations History of Present Illness Initial Comments 81-year-old male presenting with head injury after syncopal episode. Patient explains that he was at the bathroom sink when he suddenly passed out. He had been feeling lightheaded and dizzy. Patient denies any numbness, tingling, chest pain, shortness of breath. No palpitations. He had fallen striking his head on the sink or bathtub he is unsure. Syncopal episode was unwitnessed but family is in the house. Has not had any other complaints at this time Occurred: this morning Severity: moderate Associated Symptoms: vague, light headness, fainted Decreased Ability to Stand: weak Worsened By: changing position, standing postion Allergies: Coded Allergies: No Known Allergies (Unverified , 07/28/17) Home Meds Active Scripts Azithromycin (ZITHROMAX) 250 Mg Tablet, 250 MG PO DAILY24 for 4 Days, #4 TAB Prov:DAVID CARROLL MD 02/25/18 Clopidogrel Bisulfate (PLAVIX) 75 Mg Tablet, 75 MG PO DAILY, #30 4 Refills Prov:CHRIS BARKLEY APRN 07/30/17 Reported Medications Gemfibrozil (GEMFIBROZIL) 600 Mg Tablet, 600 MG PO DAILY24 for CHOLESTEROL, TABLET 02/16/18 Chrm/Rosanna/ Bt-Org Peel/Gr T (APPLE CIDER VINEGAR PLUS TB) 1 Each Tablet, 2 EACH PO DAILY, TABLET 07/28/17 Ubidecarenone (COQ-10) 100 Mg Capsule, 50 MG PO DAILY, CAPSULE 07/28/17 Clonazepam (CLONAZEPAM) 1 Mg Tablet, 1 TAB PO BID PRN for ANXIETY, #60 TAB 2 Refills 07/28/17 [Tumeric] No Conflict Check, 1 TAB PO DAILY 07/28/17 Valsartan/Hydrochlorothiazide (DIOVAN HCT 320-25 MG TABLET) 1 Each Tablet, 1 TAB PO DAILY, #30 TAB 5 Refills 07/28/17 Propranolol Hcl (INDERAL LA) 80 Mg Cap.sa.24h, 1 CAP PO DAILY, #90 CAP 1 Refill 07/28/17 Tafluprost/Pf (ZIOPTAN 0.0015% EYE DROPS) 1 Each Droperette, 1 DROP BOTH EYES BID, #30 08/02/15 Past Medical History Medical History: cardiac problems, hypertension Surgical History: appendectomy, cholecystectomy Social History Alcohol Use: none Drug Use: none Review of Systems All Other Systems: Reviewed and Negative Physical Exam General Appearance: alert, no distress EENT: nml eye inspection, PERRL Neck: supple Respiratory: no resp distress, breath sounds nml CVS: reg rate & rhythm, heart sounds.nml Abdomen: non-tender, no organomegaly, no distention, tenderness Skin: color nml, no rash, other (small 1 cm laceration to posterior scalp , no active bleeding ) Extremities: non-tender, nml ROM, no pedal edema Neuro/Psych: nml orientation, nml mood/affect, abnml speech Cranial Nerves: no evidence of acute CVA Sensorimotor: weakness ED LACERATION WOUND REPAIR # of Wounds/Lacerations Presen: 1 Wound Length (cm): 1 Distal NVT: neuro intact Anesthesia type: local Anesthesia: 1% Lidocaine Wound's Depth, Shape: superficial, linear Wound Explored: clean Wound Repaired With: gustavo Suture Style: interupted Number of Sutures: 1 Layer Closure?: No Results/Orders Results/Orders Orders - EJESIEME,KRISTEL C DO Ct Head Wo Contrast (10/25/21 13:54) Cbc With Auto Diff (10/25/21 13:54) Comprehensive Metabolic Panel (10/25/21 13:54) PT (10/25/21 13:54) Partial Thromboplastin Time. (10/25/21 13:54) Troponin I High Sensitivity (10/25/21 13:54) Lactic Acid(Ml) (10/25/21 13:54) Xr Chest 1v (10/25/21 13:54) 0.9 % Sodium Chloride (Ns 1000ml) (10/25/21 14:00) 0.9 % Sodium Chloride (Ns 1000ml) (10/25/21 13:59) Ekg-Routine (10/25/21 15:20) Lidocaine Hcl (Lidocaine 1% Vial) (10/25/21 16:49) Vital Signs Date Time Temp Pulse Resp B/P (MAP) Pulse Ox O2 Delivery O2 Flow Rate FiO2 10/25/21 17:03 97.6 72 20 150/85 (106) 95 Room Air 10/25/21 15:17 97.6 71 20 150/85 (106) 95 Room Air 10/25/21 13:33 20 10/25/21 13:28 97.6 91 20 157/71 (99) 95 Room Air 10/25/21 13:28 97.6 91 20 95 10/25/21 13:28 97.6 91 20 Administered Medications Medications (Trade) Dose Ordered Sig/Phillip Route PRN Reason Start Time Stop Time Status Last Admin Dose Admin Sodium Chloride 1,000 ml @ 1,000 mls/hr Q1H ONCE IV 10/25/21 14:00 10/25/21 14:59 DC 10/25/21 13:59 1,000 MLS/HR Laboratory Tests Test 10/25/21 14:05 10/25/21 14:10 Prothrombin Time 10.7 SEC (9.6-12.0) Prothrombin Time INR (Non-Therap) 1.0 Activated Partial Thromboplast Time 27.6 SEC (24.67-30.72) Sodium Level 136 mmol/L (132-145) Potassium Level 4.4 mmol/L (3.6-5.2) Chloride Level 104.0 mmol/L (96-109) Carbon Dioxide Level 23.2 mmol/L (20.0-32) Anion Gap 13.2 Blood Urea Nitrogen 19 mg/dL (7-18) H Creatinine 1.22 mg/dL (0.59-1.40) Estimated GFR () 69.0 (>/=60) Est GFR (CKD-EPI)(Non-Afr Marshallese) 57.0 (>/=60) BUN/Creatinine Ratio 15.0 Glucose Level 115 mg/dL (70-110) H Calcium Level 9.0 mg/dL (8.4-10.5) Total Bilirubin 1.0 mg/dL (0.2-1.0) Aspartate Amino Transferase (AST) 29 U/L (0-35) Alanine Aminotransferase (ALT) 30 U/L (12-78) Alkaline Phosphatase 80 U/L (50-136) Troponin I High Sensitivity 8 ng/L (0-75) Total Protein 7.1 g/dL (6.4-8.2) Albumin 4.1 g/dL (3.4-5.0) Globulin 3.0 Albumin/Globulin Ratio 1.366 White Blood Count 9.6 10^3/uL (4.5-11.0) Red Blood Count 4.65 10^6/uL (4.50-5.90) Hemoglobin 14.4 g/dL (13.9-16.3) Hematocrit 43.6 % (37.0-53.0) Mean Corpuscular Volume 93.8 fL (78-100) Mean Corpuscular Hemoglobin 31.0 pg (26-34) Mean Corpuscular Hemoglobin Concent 33.0 g/dL (33-36.5) Red Cell Distribution Width 13.3 % (11.5-14.5) Platelet Count 156 10^3/uL (150-400) Mean Platelet Volume 9.6 fL (7.8-11.0) Neutrophils (%) (Auto) 75.6 % (41.0-85.0) Lymphocytes (%) (Auto) 14.5 % (24.0-44.0) L Monocytes (%) (Auto) 7.9 % (5.0-12.0) Neutrophils # (Auto) 7.3 10^3/uL (1.8-7.7) Lymphocytes # (Auto) 1.40 10^3/uL1 (1.0-4.8) Monocytes # (Auto) 0.8 10^3/uL (0.3-0.8) Absolute Immature Granulocyte (auto 0.03 10^3 u/L (0-2) Absolute Eosinophils (auto) 0.1 10^3/uL (0.0-0.2) Immature Granulocytes % 0.30 % (0.00-0.50) Eosinophils % 1.2 % (0.0-5.0) Basophils % 0.5 % (0.0-0.2) H Basophils # 0.1 10^3/uL (0.0-0.1) Lactic Acid Level 1.1 mmol/L (0.5-1.9) EKG/XRAY/CT/US EKG Comments: Sinus rhythm at a rate of 76, PVC, QTC 437, no STEMI. ER DEPART Departure Time of Disposition: 17:07 Disposition: 01 HOME / SELF CARE / HOMELESS Impression: Primary Impression: Syncope and collapse Additional Impressions: Head contusion Scalp laceration Condition: Stable Patient Instructions: Head Injury, Adult, [id number], Laceration Care, Adult Referrals: PATIENCE HENLEY MD (PCP) PRIMARY CARE PROVIDER Additional Instructions: Return to the ED in 5 to 7 days for staple removal or with your primary care doctor. Follow-up on Wednesday or Wednesday with your electronic warfare operator or primary care doctor for repeat evaluation. Return to ED for any new or worsening symptoms Duration or Time Spent with Pa: 45 min Problem Qualifiers KRISTEL BRUCE DO Oct 25, 2021 14:00
[2021-10-25 14:21] LABS: BASOPHIL # 0.1 10^3/uL (0.0-0.1); BASOPHIL % 0.5 % (0.0-0.2); EOSINOPHIL # 0.1 10^3/uL (0.0-0.2); EOSINOPHIL % 1.2 % (0.0-5.0); LYMPHOCYTES % 14.5 % (24.0-44.0); MONOCYTES # 0.8 10^3/uL (0.3-0.8); MONOCYTES % 7.9 % (5.0-12.0); NEUTROPHIL # 7.3 10^3/uL (1.8-7.7); NEUTROPHILS % 75.6 % (41.0-85.0); PLATELET COUNT 156 10^3/uL (150-400); RED CELL DISTRIBUTION WIDTH 13.3 % (11.5-14.5)
[2021-10-25 14:54] LABS: CARBON DIOXIDE 23.2 mmol/L (20.0-32)
--- NOTE | 2021-10-25 14:57 | DIREP ---
PROCEDURE:CHEST 1 VIEW COMPARISON:[facility], CR, XRAY CHEST 2 VWS, 10/23/2021, 01:38 PM. INDICATIONS:dizziness with hypotension s/p endarterectomy FINDINGS: LUNGS/PLEURA:Lordotic projection and low lung volumes. No focal infiltrate or pleural effusion. CARDIAC:Prominent cardiac silhouette, TAVR and normal pulmonary vascularity. Mildly tortuous aorta. MEDIASTINUM:Normal BONES:Normal OTHER:No additional findings. CONCLUSION:No acute cardiopulmonary process. Dictated by: Yoana Mcneill MD on 10/25/2021 at 02:55 PM
[2021-10-25 15:17] VITALS: BP 150/85
--- NOTE | 2021-10-25 15:34 | PCM.EKG ---
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: ROSALBA : 1940 Requested By: KRISTEL BRUCE Order Number: [id number] Reading MD: Measurements Intervals [place] Rate: 76 P: 49 OK: 199 QRS: 107 QRSD: 138 T: -29 QT: 388 QTc: 437 Interpretive Statements Sinus rhythm Ventricular premature complex Nonspecific intraventricular conduction delay Nonspecific T abnormalities, diffuse leads Compared to ECG 05/16/2020 12:05:12 Intraventricular conduction delay now present T-wave abnormality now present Atrial fibrillation no longer present Left-axis deviation no longer present Myocardial infarct finding no longer present Please click the below link to view image of tracing.
[2021-10-25] MEDS ORDERED: LIDOCAINE 1% VIAL ONE (16:49)
[2021-10-25 17:03] VITALS: BP 150/85
--- NOTE | 2021-10-28 14:25 | DIREP ---
PROCEDURE: CT HEAD WITHOUT CONTRAST All four all Axial cuts were obtained through the head, without intravenous contrast material. The images were viewed at brain and bone settings. COMPARISON: [facility], CT, CT HEAD BRAIN W/O CONTRAST, 09/07/2016, 03:07 PM. INDICATIONS: fall, lac to back of head, FINDINGS: VENTRICLES: Commensurate with atrophy. CEREBRUM: Mild frontal atrophy and periventricular leukoaraiosis. No intracranial hemorrhage, large territory infarct or space-occupying mass. CEREBELLUM: Normal. BRAINSTEM: Normal. SKULL: Normal. SINUSES: Right maxillary antrostomy. No mucosal thickening or air-fluid levels.. OTHER: None CONCLUSION: No acute intracranial abnormality or skull fracture. Dictated by: Yoana Mcneill MD on 10/25/2021 at 03:27 PM [facility]
== END 2021-10-25 17:17 | disposition home or self-care (01) ==
LOC: ER 13:00
DX: S01.01XA Laceration without foreign body of scalp, initial encounter (principal); I10 Essential (primary) hypertension; Z79.899 Other long term (current) drug therapy; Z90.49 Acquired absence of other specified parts of digestive tract; W19.XXXA Unspecified fall, initial encounter; Y93.89 Activity, other specified; Y92.89 Other specified places as the place of occurrence of the external cause; Y99.8 Other external cause status
CPT/HCPCS: 36415; 70450; 71045; 80053; 83605; 84484; 85025; 85610; 85730; 93005; 96360; 99285; J2001; J7030

== ENCOUNTER → 2021-11-18 | Outpatient (CLI) | payer MEDICARE, BC ==
[2021-11-18 14:37] LABS: RED CELL DISTRIBUTION WIDTH 13.2 % (11.5-14.5)
[2021-11-18 15:07] LABS: CARBON DIOXIDE 25.1 mmol/L (20.0-32)
== END | disposition home or self-care (01) ==
LOC: NPLAB 14:15
PROVIDERS: ATTEND Internal Medicine Cardiovascular Disease
DX: Z01.812 Encounter for preprocedural laboratory examination (principal); Z95.0 Presence of cardiac pacemaker; Z79.01 Long term (current) use of anticoagulants
CPT/HCPCS: 36415; 80053; 85027; 85610